=== PATIENT | male | born 1965 | race American Indian/Alaskan Native ===

== ENCOUNTER 2017-07-14 13:43 | Emergency (ER) | payer SELFPAY ==
[2017-07-14] MEDS ORDERED: NACL 0.9% 1000 ML 1,000 ML IV ONE (13:59)
[2017-07-14 14:28] LABS: Basophils % (Auto) 0.5 % (0.0-1.8); Hematocrit 40.1 % (35.5-45.6); Hemoglobin 13.6 gm/dl (11.8-15.2); Mean Corpuscular HGB Conc 34 % (32-34); Mean Corpuscular Hemoglobin 31 pg (28-32); Mean Corpuscular Volume 92 fl (84-94); Platelet Count 178 K/mm3 (140-440); Red Blood Count 4.38 M/mm3 (3.65-5.03); Red Cell Distribution Width 14.7 % (13.2-15.2); White Blood Count 8.8 K/mm3 (4.5-11.0)
[2017-07-14 14:39] LABS: INR 0.88 (0.87-1.13)
[2017-07-14 14:40] LABS: Partial Thromboplastin Time 34.5 Sec. (24.2-36.6)
[2017-07-14 14:50] LABS: Alanine Aminotransferase 11 units/L (7-56); Albumin 3.8 g/dL (3.9-5); Albumin/Globulin Ratio 1.3 %; Alkaline Phosphatase 74 units/L (35-129); Anion Gap 17 mmol/L; BUN/Creatinine Ratio 7.77; Blood Urea Nitrogen 7 mg/dL (9-20); Calcium 8.7 mg/dL (8.4-10.2); Carbon Dioxide 23 mmol/L (22-30); Chloride 104.1 mmol/L (98-107); Glucose 102 mg/dL (75-100); Lipase 43 units/L (13-60); Sodium 140 mmol/L (137-145); Total Protein 6.7 g/dL (6.3-8.2)
--- NOTE | 2017-07-14 16:31 | Emergency Department Report ---
ED GI Bleed HPI - General Chief complaint: GI Bleed Stated complaint: BLOODY STOOL Time Seen by Provider: 07/14/17 16:14 Source: patient Mode of arrival: Ambulatory Limitations: No Limitations - History of Present Illness Initial comments: Patient is a 52-year-old male who presents with bloody stools have been going on for the last year. Patient states that he came in today because he's noticed increased frequency in his bloody stools. He states that A, serum and however he defecates. He states that there is some red streaks when he wipes. Patient is also complaining of tongue pain. Tongue pain is said to 10 nothing makes it better or worse as a sore type pain. The pain does not radiate. It is intermittent and is not associated with any symptoms. He has not talked to his doctor about this rectal bleeding. Patient denies having any nausea or vomiting. Patient denies having any chest pain any fever. - Related Data Home Medications Medication Instructions Recorded Confirmed Last Taken Aspirin [Aspirin BABY CHEW TAB] 81 mg PO QDAY 07/12/15 04/13/16 04/13/16 Lisinopril [Zestril TAB] 5 mg PO QDAY 07/12/15 04/13/16 04/13/16 Nitroglycerin [Nitrostat] 0.4 mg SL Q5M PRN 07/12/15 04/13/16 04/13/16 Carvedilol [Coreg] 3.125 mg PO BID 04/13/16 04/13/16 04/13/16 Folic Acid [Folvite] 1 mg PO QDAY 04/13/16 04/13/16 04/13/16 Simvastatin [Zocor TAB] 2 mg PO QDAY 04/13/16 04/13/16 04/13/16 Previous Rx's Medication Instructions Recorded Last Taken Type Nystas/Diphen/Xyl Visc/Mylanta 30 ml PO Q4H PRN #380 ml 07/14/17 Unknown Rx [Magic Mouthwash] Allergies Allergy/AdvReac Type Severity Reaction Status Date / Time No Known Allergies Allergy Verified 08/16/13 05:08 ED Review of Systems ROS: Stated complaint: BLOODY STOOL Other details as noted in HPI Constitutional: denies: chills, fever Eyes: denies: eye pain, eye discharge, vision change ENT: other (tongue pain ). denies: ear pain, throat pain Respiratory: denies: cough, shortness of breath, wheezing Cardiovascular: denies: chest pain, palpitations Endocrine: no symptoms reported Gastrointestinal: hematochezia. denies: abdominal pain, nausea, diarrhea Genitourinary: denies: urgency, dysuria Musculoskeletal: denies: back pain, joint swelling, arthralgia Skin: denies: rash, lesions Neurological: denies: headache, weakness, paresthesias Psychiatric: denies: anxiety, depression Hematological/Lymphatic: denies: easy bleeding, easy bruising ED Past Medical Hx - Past Medical History Hx Hypertension: Yes Hx Heart Attack/AMI: Yes (5) - Surgical History Additional Surgical History: cath - Social History Smoking Status: Never Smoker - Medications Home Medications: Home Medications Medication Instructions Recorded Confirmed Last Taken Type Aspirin [Aspirin BABY CHEW TAB] 81 mg PO QDAY 07/12/15 04/13/16 04/13/16 History Lisinopril [Zestril TAB] 5 mg PO QDAY 07/12/15 04/13/16 04/13/16 History Nitroglycerin [Nitrostat] 0.4 mg SL Q5M PRN 07/12/15 04/13/16 04/13/16 History Carvedilol [Coreg] 3.125 mg PO BID 04/13/16 04/13/16 04/13/16 History Folic Acid [Folvite] 1 mg PO QDAY 04/13/16 04/13/16 04/13/16 History Simvastatin [Zocor TAB] 2 mg PO QDAY 04/13/16 04/13/16 04/13/16 History Nystas/Diphen/Xyl Visc/Mylanta 30 ml PO Q4H PRN #380 ml 07/14/17 Unknown Rx [Magic Mouthwash] ED Physical Exam - General Limitations: No Limitations General appearance: alert, in no apparent distress - Head Head exam: Present: atraumatic, normocephalic - Eye Eye exam: Present: normal appearance - ENT ENT exam: Present: mucous membranes moist, other (tongue has no rash or sores) - Neck Neck exam: Present: normal inspection - Respiratory Respiratory exam: Present: normal lung sounds bilaterally. Absent: respiratory distress - Cardiovascular Cardiovascular Exam: Present: regular rate, normal rhythm. Absent: systolic murmur, diastolic murmur, rubs, gallop - GI/Abdominal GI/Abdominal exam: Present: soft, normal bowel sounds - Rectal Rectal exam: Present: deferred, heme (-) stool, other (external hemorroids ) - Extremities Exam Extremities exam: Present: normal inspection - Back Exam Back exam: Present: normal inspection - Neurological Exam Neurological exam: Present: alert, oriented X3 - Psychiatric Psychiatric exam: Present: normal affect, normal mood - Skin Skin exam: Present: warm, dry, intact, normal color. Absent: rash ED Course Vital Signs 07/14/17 07/14/17 07/14/17 13:53 16:03 16:04 Temperature 98.1 F Pulse Rate 79 Respiratory 16 Rate Blood Pressure 129/80 137/99 O2 Sat by Pulse 100 100 100 Oximetry - Reevaluation(s) Reevaluation #1: 07/14/17 16:36 Patient has no active rectal bleeding. He is in no pain. Discussed with patient that I will send patient home with referral for GI doctor. He agrees with plan. ED Medical Decision Making - Lab Data Result diagrams: 07/14/17 14:11 07/14/17 14:11 Lab Results 07/14/17 07/14/17 07/14/17 Range/Units 14:11 14:11 14:11 WBC 8.8 (4.5-11.0) K/mm3 RBC 4.38 (3.65-5.03) M/mm3 Hgb 13.6 (11.8-15.2) gm/dl Hct 40.1 (35.5-45.6) % MCV 92 (84-94) fl MCH 31 (28-32) pg MCHC 34 (32-34) % RDW 14.7 (13.2-15.2) % Plt Count 178 (140-440) K/mm3 Lymph % (Auto) 22.5 (13.4-35.0) % [place] % (Auto) 3.7 (0.0-7.3) % Eos % (Auto) 1.0 (0.0-4.3) % Baso % (Auto) 0.5 (0.0-1.8) % Lymph # 2.0 (1.2-5.4) K/mm3 [place] # 0.3 (0.0-0.8) K/mm3 Eos # 0.1 (0.0-0.4) K/mm3 Baso # 0.0 (0.0-0.1) K/mm3 Seg Neutrophils % 72.3 H (40.0-70.0) % Seg Neutrophils # 6.3 (1.8-7.7) K/mm3 PT 11.8 L (12.2-14.9) Sec. INR 0.88 (0.87-1.13) APTT 34.5 (24.2-36.6) Sec. Sodium 140 (137-145) mmol/L Potassium 4.0 (3.6-5.0) mmol/L Chloride 104.1 (98-107) mmol/L Carbon Dioxide 23 (22-30) mmol/L Anion Gap 17 mmol/L BUN 7 L (9-20) mg/dL Creatinine 0.9 (0.8-1.5) mg/dL Estimated GFR > 60 ml/min BUN/Creatinine Ratio 7.77 % Glucose 102 H (75-100) mg/dL Calcium 8.7 (8.4-10.2) mg/dL Total Bilirubin 0.20 (0.1-1.2) mg/dL AST 18 (5-40) units/L ALT 11 (7-56) units/L Alkaline Phosphatase 74 (35-129) units/L Total Protein 6.7 (6.3-8.2) g/dL Albumin 3.8 L (3.9-5) g/dL Albumin/Globulin Ratio 1.3 % Lipase 43 (13-60) units/L Blood Type Antibody Screen 07/14/17 Range/Units 14:20 WBC (4.5-11.0) K/mm3 RBC (3.65-5.03) M/mm3 Hgb (11.8-15.2) gm/dl Hct (35.5-45.6) % MCV (84-94) fl MCH (28-32) pg MCHC (32-34) % RDW (13.2-15.2) % Plt Count (140-440) K/mm3 Lymph % (Auto) (13.4-35.0) % [place] % (Auto) (0.0-7.3) % Eos % (Auto) (0.0-4.3) % Baso % (Auto) (0.0-1.8) % Lymph # (1.2-5.4) K/mm3 [place] # (0.0-0.8) K/mm3 Eos # (0.0-0.4) K/mm3 Baso # (0.0-0.1) K/mm3 Seg Neutrophils % (40.0-70.0) % Seg Neutrophils # (1.8-7.7) K/mm3 PT (12.2-14.9) Sec. INR (0.87-1.13) APTT (24.2-36.6) Sec. Sodium (137-145) mmol/L Potassium (3.6-5.0) mmol/L Chloride (98-107) mmol/L Carbon Dioxide (22-30) mmol/L Anion Gap mmol/L BUN (9-20) mg/dL Creatinine (0.8-1.5) mg/dL Estimated GFR ml/min BUN/Creatinine Ratio % Glucose (75-100) mg/dL Calcium (8.4-10.2) mg/dL Total Bilirubin (0.1-1.2) mg/dL AST (5-40) units/L ALT (7-56) units/L Alkaline Phosphatase (35-129) units/L Total Protein (6.3-8.2) g/dL Albumin (3.9-5) g/dL Albumin/Globulin Ratio % Lipase (13-60) units/L Blood Type O POSITIVE Antibody Screen Negative - EKG Data -: EKG Interpreted by Mi - EKG Data 07/14/17 16:31 EKG shows normal sinus rhythm no ST segment elevations or T-wave inversions. No prior EKG. - Medical Decision Making Chief medical diagnosis: External hemorrhoid Differential diagnosis: Internal hemorrhoid, AVM malformation, peptic ulcer, anemia I will get CBC, CMP, type and screen, EKG, troponin Patient is Hemoccult negative on rectal exam has external hemorrhoid. Patient' s laboratory findings are unrevealing. Due to patient having symptoms have been going on for one year. Also patient home with follow-up for GI doctor. Also prescribed patient Magic mouthwash for his tongue pain. Patient has no sores on his tongue and no oral thrush. Additional PERRL discharge instructions were given. Critical care attestation.: If time is entered above; I have spent that time in minutes in the direct care of this critically ill patient, excluding procedure time. ED Disposition Clinical Impression: Tongue pain, Rectal bleeding Disposition: DC- TO HOME OR SELFCARE Is pt being admited?: No Does the pt Need Aspirin: No Condition: Stable Instructions: Rectal Bleeding (ED) Prescriptions: Nystas/Diphen/Xyl Visc/Mylanta [Magic Mouthwash] 30 ml PO Q4H PRN #380 ml PRN Reason: Mouth Pain Referrals: SKIP ADDISON MD [Staff Physician] - 3-5 Days Forms: Accompanied Note
[2017-07-14 17:06] VITALS: BP 137/99
== END 2017-07-14 16:44 | disposition home or self-care (01) ==
LOC: ED 13:43
DX: K14.6 Glossodynia (principal); K62.5 Hemorrhage of anus and rectum; I10 Essential (primary) hypertension; I21.3 ST elevation (STEMI) myocardial infarction of unspecified site
CPT/HCPCS: 36415; 80053; 83690; 85025; 85610; 85730; 86850; 86900; 86901; 93005; 93010; 99284

== ENCOUNTER 2017-10-06 18:03 | Emergency (ER) | payer OTHER ==
[2017-10-06 18:54] VITALS: BP 142/93
--- NOTE | 2017-10-06 20:27 | Emergency Department Report ---
ED ENT HPI - General Chief complaint: Earache Stated complaint: SCRATCH IN MY EAR Time Seen by Provider: 10/06/17 20:08 Source: patient Mode of arrival: Ambulatory Limitations: No Limitations - History of Present Illness Initial comments: This is a 52-year-old male nontoxic, well nourished in appearance, no acute signs of distress presents to the ED with c/o of left earache x1 day. Patient stated he felt like a bug tried to get inside and he scraped his left ear. Patient denies any hearing abnormalities, mastoid tenderness, discharge from the ear canal, fever, chills, nausea, vomiting, chest pain, shortness of breath , headache, stiff neck. Patient denies any allergies. Past medical history includes hypertension. MD complaint: ear pain -: This evening Location: L ear Severity: mild Severity scale (0 -10): 8 Quality: aching Consistency: constant Improves with: none Worsens with: none Associated Symptoms: denies: fever, cough, gum swelling, toothache, pain with swallowing, sore throat, tinnitus, hearing loss, discharge from ear, rhinorrhea - Related Data Home Medications Medication Instructions Recorded Confirmed Last Taken Aspirin [Aspirin BABY CHEW TAB] 81 mg PO QDAY 07/12/15 04/13/16 04/13/16 Lisinopril [Zestril TAB] 5 mg PO QDAY 07/12/15 04/13/16 04/13/16 Nitroglycerin [Nitrostat] 0.4 mg SL Q5M PRN 07/12/15 04/13/16 04/13/16 Carvedilol [Coreg] 3.125 mg PO BID 04/13/16 04/13/16 04/13/16 Folic Acid [Folvite] 1 mg PO QDAY 04/13/16 04/13/16 04/13/16 Simvastatin [Zocor TAB] 2 mg PO QDAY 04/13/16 04/13/16 04/13/16 Previous Rx's Medication Instructions Recorded Last Taken Type Nystas/Diphen/Xyl Visc/Mylanta 30 ml PO Q4H PRN #380 ml 07/14/17 Unknown Rx [Magic Mouthwash] Amoxicillin 500 mg PO BID #20 capsule 10/06/17 Unknown Rx Allergies Allergy/AdvReac Type Severity Reaction Status Date / Time No Known Allergies Allergy Verified 08/16/13 05:08 ED Dental HPI - General Chief complaint: Earache Stated complaint: SCRATCH IN MY EAR Time Seen by Provider: 10/06/17 20:08 Source: patient Mode of arrival: Ambulatory Limitations: No Limitations - Related Data Home Medications Medication Instructions Recorded Confirmed Last Taken Aspirin [Aspirin BABY CHEW TAB] 81 mg PO QDAY 07/12/15 04/13/16 04/13/16 Lisinopril [Zestril TAB] 5 mg PO QDAY 07/12/15 04/13/16 04/13/16 Nitroglycerin [Nitrostat] 0.4 mg SL Q5M PRN 07/12/15 04/13/16 04/13/16 Carvedilol [Coreg] 3.125 mg PO BID 04/13/16 04/13/16 04/13/16 Folic Acid [Folvite] 1 mg PO QDAY 04/13/16 04/13/16 04/13/16 Simvastatin [Zocor TAB] 2 mg PO QDAY 04/13/16 04/13/16 04/13/16 Previous Rx's Medication Instructions Recorded Last Taken Type Nystas/Diphen/Xyl Visc/Mylanta 30 ml PO Q4H PRN #380 ml 07/14/17 Unknown Rx [Magic Mouthwash] Amoxicillin 500 mg PO BID #20 capsule 10/06/17 Unknown Rx Allergies Allergy/AdvReac Type Severity Reaction Status Date / Time No Known Allergies Allergy Verified 08/16/13 05:08 ED Review of Systems ROS: Stated complaint: SCRATCH IN MY EAR Other details as noted in HPI Constitutional: denies: chills, fever Eyes: denies: eye pain, eye discharge, vision change ENT: ear pain. denies: throat pain Respiratory: denies: cough, shortness of breath, wheezing Cardiovascular: denies: chest pain, palpitations Endocrine: no symptoms reported Gastrointestinal: denies: abdominal pain, nausea, diarrhea Genitourinary: denies: urgency, dysuria Musculoskeletal: denies: back pain, joint swelling, arthralgia Skin: denies: rash, lesions Neurological: denies: headache, weakness, paresthesias Psychiatric: denies: anxiety, depression Hematological/Lymphatic: denies: easy bleeding, easy bruising ED Past Medical Hx - Past Medical History Hx Hypertension: Yes Hx Heart Attack/AMI: Yes (5) - Surgical History Additional Surgical History: cath - Social History Smoking Status: Current Every Day Smoker Substance Use Type: None - Medications Home Medications: Home Medications Medication Instructions Recorded Confirmed Last Taken Type Aspirin [Aspirin BABY CHEW TAB] 81 mg PO QDAY 07/12/15 04/13/16 04/13/16 History Lisinopril [Zestril TAB] 5 mg PO QDAY 07/12/15 04/13/16 04/13/16 History Nitroglycerin [Nitrostat] 0.4 mg SL Q5M PRN 07/12/15 04/13/16 04/13/16 History Carvedilol [Coreg] 3.125 mg PO BID 04/13/16 04/13/16 04/13/16 History Folic Acid [Folvite] 1 mg PO QDAY 04/13/16 04/13/16 04/13/16 History Simvastatin [Zocor TAB] 2 mg PO QDAY 04/13/16 04/13/16 04/13/16 History Nystas/Diphen/Xyl Visc/Mylanta 30 ml PO Q4H PRN #380 ml 07/14/17 Unknown Rx [Magic Mouthwash] Amoxicillin 500 mg PO BID #20 capsule 10/06/17 Unknown Rx ED Physical Exam - General Limitations: No Limitations General appearance: alert, in no apparent distress - Head Head exam: Present: atraumatic, normocephalic - Eye Eye exam: Present: normal appearance, PERRL, EOMI. Absent: scleral icterus, conjunctival injection, nystagmus, periorbital swelling, periorbital tenderness Pupils: Present: normal accommodation - ENT ENT exam: Present: normal exam, normal orophraynx, mucous membranes moist, normal external ear exam - Expanded ENT Exam Expanded Ear exam: Present: normal external inspection TM/Canal exam: Erythema: Left TM, Bulging: Left TM Mouth exam: Present: normal external inspection, tongue normal. Absent: drooling, trismus, muffled voice, tongue elevation, laceration Teeth exam: Present: normal inspection Throat exam: Positive: normal inspection - Neck Neck exam: Present: normal inspection, full ROM. Absent: tenderness, lymphadenopathy, thyromegaly - Respiratory Respiratory exam: Present: normal lung sounds bilaterally. Absent: respiratory distress, wheezes, rales, rhonchi, stridor, chest wall tenderness, accessory muscle use, decreased breath sounds, prolonged expiratory - Cardiovascular Cardiovascular Exam: Present: regular rate, normal rhythm, normal heart sounds. Absent: bradycardia, tachycardia, irregular rhythm, systolic murmur, diastolic murmur, rubs, gallop - GI/Abdominal GI/Abdominal exam: Present: soft, normal bowel sounds. Absent: distended, tenderness, guarding, rebound, rigid, diminished bowel sounds - Rectal Rectal exam: Present: deferred - Extremities Exam Extremities exam: Present: normal inspection, full ROM, normal capillary refill. Absent: tenderness, pedal edema, joint swelling, calf tenderness - Back Exam Back exam: Present: normal inspection, full ROM. Absent: tenderness, CVA tenderness (R), CVA tenderness (L), muscle spasm, paraspinal tenderness, vertebral tenderness, rash noted - Neurological Exam Neurological exam: Present: alert, oriented X3, CN II-XII intact, normal gait, reflexes normal - Psychiatric Psychiatric exam: Present: normal affect, normal mood - Skin Skin exam: Present: warm, dry, intact, normal color. Absent: rash ED Course Vital Signs 10/06/17 18:49 Temperature 98.0 F Pulse Rate 90 Respiratory 16 Rate Blood Pressure 142/93 O2 Sat by Pulse 98 Oximetry - Reevaluation(s) Reevaluation #1: 10/06/17 20:28 Patient is speaking in full sentences with no signs of distress noted. ED Medical Decision Making - Medical Decision Making this is a 52-year-old male that presents with left otitis media. Patient is febrile and was examined by me. There is no foreign body present upon examination. Negative mastoid tenderness or tragus tenderness. Patient will receive amoxicillin at discharge. Patient was instructed Follow-up with a primary care doctor in 3-5 days or if symptoms worsen and continue return to emergency room as soon as possible. At time time of discharge, the patient does not seem toxic or ill in appearance. No acute signs of distress noted. Patient agrees to discharge treatment plan of care. No further questions noted by the patient. Critical care attestation.: If time is entered above; I have spent that time in minutes in the direct care of this critically ill patient, excluding procedure time. ED Disposition Clinical Impression: Otitis media Qualifiers: Otitis media type: unspecified Laterality: left Qualified Code(s): H66.92 - Otitis media, unspecified, left ear Disposition: DC-01 TO HOME OR SELFCARE Is pt being admited?: No Does the pt Need Aspirin: No Condition: Stable Instructions: Otitis Media (ED), Amoxicillin (By mouth) Additional Instructions: Follow-up with a primary care doctor in 3-5 days or if symptoms worsen and continue return to emergency room as soon as possible. Prescriptions: Amoxicillin 500 mg PO BID #20 capsule Referrals: PRIMARY CAREMD [Primary Care Provider] - 3-5 Days DENTON MONTEZ MD [Staff Physician] - 3-5 Days [facility] [Outside] - 3-5 Days [facility] [Outside] - 3-5 Days Forms: Work/School Release Form(ED)
== END 2017-10-06 20:35 | disposition home or self-care (01) ==
LOC: ED 18:03
DX: H66.92 Otitis media, unspecified, left ear (principal); I10 Essential (primary) hypertension; I21.9 Acute myocardial infarction, unspecified; F17.200 Nicotine dependence, unspecified, uncomplicated; Z79.82 Long term (current) use of aspirin
CPT/HCPCS: 99282

== ENCOUNTER 2018-04-16 13:18 | Emergency (ER) | payer SELFPAY ==
[2018-04-16 13:53] VITALS: BP 116/71
--- NOTE | 2018-04-16 15:14 | Emergency Department Report ---
ED Lower Extremity HPI - General Chief Complaint: Extremity Problem,Nontraumatic Stated Complaint: TOE FUNGUS Time Seen by Provider: 04/16/18 14:56 Source: patient Mode of arrival: Ambulatory Limitations: No Limitations - History of Present Illness Initial Comments: This is a 53-year-old -[place] male who presents with fungal rash between 4th and 5th toes. Complaint: foot injury (right) -: month(s) (3 months) Injury: Toes: Right (fungal rash between #4 and #5) Type of Injury: unknown Place: home Severity: moderate Severity scale (0 -10): 3 Improves With: other ([id number] fungal cream) Worsens With: weight bearing Context: walking Associated Symptoms: able to partially bear weight, ambulatory - Related Data Home Medications Medication Instructions Recorded Confirmed Last Taken Aspirin [Aspirin BABY CHEW TAB] 81 mg PO QDAY 07/12/15 04/13/16 04/13/16 Lisinopril [Zestril TAB] 5 mg PO QDAY 07/12/15 04/13/16 04/13/16 Nitroglycerin [Nitrostat] 0.4 mg SL Q5M PRN 07/12/15 04/13/16 04/13/16 Carvedilol [Coreg] 3.125 mg PO BID 04/13/16 04/13/16 04/13/16 Folic Acid [Folvite] 1 mg PO QDAY 04/13/16 04/13/16 04/13/16 Simvastatin [Zocor TAB] 2 mg PO QDAY 04/13/16 04/13/16 04/13/16 Previous Rx's Medication Instructions Recorded Last Taken Type Nystas/Diphen/Xyl Visc/Mylanta 30 ml PO Q4H PRN #380 ml 07/14/17 Unknown Rx [Magic Mouthwash] Amoxicillin 500 mg PO BID #20 capsule 10/06/17 Unknown Rx Ciprofloxacin HCl [Cipro] 500 mg PO Q8H #21 tablet 04/16/18 Unknown Rx Allergies Allergy/AdvReac Type Severity Reaction Status Date / Time No Known Allergies Allergy Verified 08/16/13 05:08 ED Review of Systems ROS: Stated complaint: TOE FUNGUS Other details as noted in HPI Constitutional: denies: chills, fever Respiratory: denies: cough, shortness of breath, wheezing Cardiovascular: as per HPI Gastrointestinal: denies: abdominal pain, nausea, vomiting, diarrhea Skin: rash (between 4th and 5th toes). denies: lesions Neurological: denies: headache, weakness, numbness, paresthesias Psychiatric: denies: anxiety, depression ED Past Medical Hx - Past Medical History Previous Medical History?: Yes Hx Hypertension: Yes Hx Heart Attack/AMI: Yes (5) - Surgical History Additional Surgical History: cath - Social History Smoking Status: Current Every Day Smoker Substance Use Type: None - Medications Home Medications: Home Medications Medication Instructions Recorded Confirmed Last Taken Type Aspirin [Aspirin BABY CHEW TAB] 81 mg PO QDAY 07/12/15 04/13/16 04/13/16 History Lisinopril [Zestril TAB] 5 mg PO QDAY 07/12/15 04/13/16 04/13/16 History Nitroglycerin [Nitrostat] 0.4 mg SL Q5M PRN 07/12/15 04/13/16 04/13/16 History Carvedilol [Coreg] 3.125 mg PO BID 04/13/16 04/13/16 04/13/16 History Folic Acid [Folvite] 1 mg PO QDAY 04/13/16 04/13/16 04/13/16 History Simvastatin [Zocor TAB] 2 mg PO QDAY 04/13/16 04/13/16 04/13/16 History Nystas/Diphen/Xyl Visc/Mylanta 30 ml PO Q4H PRN #380 ml 07/14/17 Unknown Rx [Magic Mouthwash] Amoxicillin 500 mg PO BID #20 capsule 10/06/17 Unknown Rx Ciprofloxacin HCl [Cipro] 500 mg PO Q8H #21 tablet 04/16/18 Unknown Rx ED Physical Exam - General Limitations: No Limitations General appearance: alert, in no apparent distress - Respiratory Respiratory exam: Present: normal lung sounds bilaterally. Absent: respiratory distress - Cardiovascular Cardiovascular Exam: Present: regular rate, normal rhythm, normal heart sounds. Absent: systolic murmur, diastolic murmur, rubs, gallop - GI/Abdominal GI/Abdominal exam: Present: soft, normal bowel sounds. Absent: organomegaly, mass - Expanded Lower Extremity Exam Right Hip exam: Present: normal inspection, full ROM Upper Leg exam: Present: normal inspection, full ROM Knee exam: Present: normal inspection, full ROM Lower Leg exam: Present: normal inspection, full ROM Ankle exam: Present: normal inspection, full ROM Foot/Toe exam: Present: full ROM, tenderness (1 cm erythematous rash between fourth and fifth toe web, tenderness, and purulent discharge) Neuro vascular tendon exam: Present: no vascular compromise Gait: Positive: observed and limited by pain ED Course Vital Signs 04/16/18 13:52 Temperature 98.3 F Pulse Rate 74 Respiratory 16 Rate Blood Pressure 116/71 O2 Sat by Pulse 97 Oximetry ED Lower Extremity MDM - Medical Decision Making This is a 53 y.o. male that presents with a painful rash between 4th and 5th toe web on right foot for 3 months. Patient is stable and examined by me. No acute signs of distress noted. Physical assessment of 1 cm rash in toe web, tenderness, and purulent discharge. Discussed plan to start cipro and ibuprofen with patient. Educated patient and spouse on follow up plan and wound reassessed in 3-5 days. Patient agrees to ED plan of care. Discharged home and follow up with PCP in 2-3 days. Critical care attestation.: If time is entered above; I have spent that time in minutes in the direct care of this critically ill patient, excluding procedure time. ED Disposition Clinical Impression: Infection of toe web Tinea pedis Qualifiers: Laterality: right Qualified Code(s): B35.3 - Tinea pedis Disposition: DC-01 TO HOME OR SELFCARE Is pt being admited?: No Does the pt Need Aspirin: No Condition: Stable Instructions: Tinea Pedis (ED) Additional Instructions: Wash feet twice a day and keep area clean and dry. Wear clean soak daily. Complete full course of antibiotics as prescribed for 7 days. Follow up with primary care provider in 2 to 3 days. Prescriptions: Ciprofloxacin HCl [Cipro] 500 mg PO Q8H #21 tablet Referrals: [facility] [Outside] - 3-5 Days [facility] [Outside] - 3-5 Days [facility] [Outside] - 3-5 Days Time of Disposition: 15:25 Print Language: CZECH
== END 2018-04-16 15:40 | disposition home or self-care (01) ==
LOC: ED 13:18
DX: B35.3 Tinea pedis (principal); I10 Essential (primary) hypertension; I25.2 Old myocardial infarction; F17.200 Nicotine dependence, unspecified, uncomplicated; Z79.82 Long term (current) use of aspirin
CPT/HCPCS: 99282

== ENCOUNTER 2018-08-03 05:45 | Emergency (ER) | payer SELFPAY ==
[2018-08-03 06:31] LABS: Basophils # (Auto) 0.1 K/mm3 (0.0-0.1); Basophils % (Auto) 0.6 % (0.0-1.8); Eosinophils % (Auto) 0.3 % (0.0-4.3); Hemoglobin 15.3 gm/dl (11.8-15.2); Lymphocytes % (Auto) 21.9 % (13.4-35.0); Mean Corpuscular HGB Conc 34 % (32-34); Mean Corpuscular Hemoglobin 32 pg (28-32); Mean Corpuscular Volume 94 fl (84-94); Monocytes # (Auto) 0.4 K/mm3 (0.0-0.8); Monocytes % (Auto) 4.6 % (0.0-7.3); Platelet Count 194 K/mm3 (140-440); Red Blood Count 4.79 M/mm3 (3.65-5.03); Red Cell Distribution Width 14.3 % (13.2-15.2)
[2018-08-03 06:41] LABS: INR 0.89 (0.87-1.13)
[2018-08-03 06:42] LABS: Partial Thromboplastin Time 28.9 Sec. (24.2-36.6)
[2018-08-03 07:13] LABS: BUN/Creatinine Ratio 11; Blood Urea Nitrogen 11 mg/dL (9-20); Calcium 9.4 mg/dL (8.4-10.2); Hemolysis Index 2
[2018-08-03] MEDS ORDERED: SUBLIMAZE IV ONE (07:28)
[2018-08-03] MEDS ORDERED: ZOFRAN IV ONE (07:28)
--- NOTE | 2018-08-03 08:07 | Emergency Department Report ---
HPI - General Chief Complaint: Chest Pain Time Seen by Provider: 08/03/18 06:31 - HPI HPI: The patient is a 53-year-old male who presents for evaluation of chest pain. The patient reports bilateral chest pain that began one to 2 hours prior to arrival, has been constant since onset, moderate severity currently, sharp in quality. He states that it began while he was walking home from a store around 4am. The patient denies fever, neck pain, parasthesias, dyspnea, cough, hemoptysis, palpitations, dizziness, syncope, unilateral leg swelling, calf muscle pain. Patient also denies cocaine or other stimulant use, history of DVT or PE, recent immobilization, or history of cancer. ED Past Medical Hx - Past Medical History Hx Hypertension: Yes Hx Heart Attack/AMI: Yes (5) - Surgical History Additional Surgical History: cath - Social History Smoking Status: Current Every Day Smoker Substance Use Type: Alcohol - Medications Home Medications: Home Medications Medication Instructions Recorded Confirmed Last Taken Type Aspirin [Aspirin BABY CHEW TAB] 81 mg PO QDAY 07/12/15 04/13/16 04/13/16 History Lisinopril [Zestril TAB] 5 mg PO QDAY 07/12/15 04/13/16 04/13/16 History Nitroglycerin [Nitrostat] 0.4 mg SL Q5M PRN 07/12/15 04/13/16 04/13/16 History Carvedilol [Coreg] 3.125 mg PO BID 04/13/16 04/13/16 04/13/16 History Folic Acid [Folvite] 1 mg PO QDAY 04/13/16 04/13/16 04/13/16 History Simvastatin [Zocor TAB] 2 mg PO QDAY 04/13/16 04/13/16 04/13/16 History Nystas/Diphen/Xyl Visc/Mylanta 30 ml PO Q4H PRN #380 ml 07/14/17 Unknown Rx [Magic Mouthwash] Amoxicillin 500 mg PO BID #20 capsule 10/06/17 Unknown Rx Ciprofloxacin HCl [Cipro] 500 mg PO Q8H #21 tablet 04/16/18 Unknown Rx ED Review of Systems ROS: Stated complaint: CHEST PAIN Other details as noted in HPI Constitutional: denies: fever ENT: denies: throat or neck pain Respiratory: denies: cough, shortness of breath Cardiovascular: reports: chest pain Endocrine: denies unexplained weight loss or gain Gastrointestinal: denies: abdominal pain, nausea Genitourinary: denies: dysuria Musculoskeletal: denies: leg swelling Skin: denies: rash Neurological: denies: headache Hematological/Lymphatic: denies: easy bleeding or easy bruising Psych: denies sadness or hopelessness Physical Exam - Physical Exam Vital Signs: Vital Signs 08/03/18 08/03/18 08/03/18 05:55 06:00 06:01 Temperature 98.1 F Pulse Rate 86 83 Respiratory 17 Rate Blood Pressure 134/86 142/78 O2 Sat by Pulse 96 96 94 Oximetry 08/03/18 08/03/18 08/03/18 06:09 06:15 06:31 Temperature Pulse Rate 81 82 Respiratory 12 17 18 Rate Blood Pressure 142/78 128/65 O2 Sat by Pulse 96 96 Oximetry 08/03/18 07:01 Temperature Pulse Rate 76 Respiratory 18 Rate Blood Pressure 128/69 O2 Sat by Pulse 95 Oximetry Physical Exam: General: well-nourished, well-developed, no acute distress Head: Normocephalic, atraumatic Eyes: normal sclera ENT: Mucous membranes are pink and moist Neck: trachea midline, neck supple, No neck stiffness, no cervical adenopathy Respiratory: Breath sounds equal bilaterally, no wheezing, rales, or rhonchi Cardio: S1 and S2 present, no murmurs, rubs, gallops, capillary refill is brisk Abdomen: Normoactive bowel sounds, soft abdomen, no rigidity, no guarding or rebound tenderness Musc: No pitting edema Skin: No rash Neuro: no facial drooping, normal speech Psych: Normal affect ED Course Vital Signs 08/03/18 08/03/18 08/03/18 05:55 06:00 06:01 Temperature 98.1 F Pulse Rate 86 83 Respiratory 17 Rate Blood Pressure 134/86 142/78 O2 Sat by Pulse 96 96 94 Oximetry 08/03/18 08/03/18 08/03/18 06:09 06:15 06:31 Temperature Pulse Rate 81 82 Respiratory 12 17 18 Rate Blood Pressure 142/78 128/65 O2 Sat by Pulse 96 96 Oximetry 08/03/18 07:01 Temperature Pulse Rate 76 Respiratory 18 Rate Blood Pressure 128/69 O2 Sat by Pulse 95 Oximetry ED Medical Decision Making - Lab Data Result diagrams: 08/03/18 06:12 08/03/18 06:12 - Medical Decision Making The patient was seen and examined by myself. The patient is placed on a cardiac rehabilitation program director and continuous pulse ox. On initial evaluation, the patient was found to be in no distress. EKG was negative for findings suggestive of acute cardiac infarct. Labs and imaging are obtained. The patient is given a refill for his pain. Chest x-ray is negative for pneumothorax, focal consolidation, pulmonary vascular congestion, pleural effusion, or other obvious acute cardiopulmonary disease process. Lab results were non-concerning including levels of 3 sets of troponin, WBC, hemoglobin, hematocrit, electrolytes, renal function. The patient was reevaluated and reported that their symptoms were markedly improved. As the patient has a GREY risk score less than 2, and a well 's score less than 2, the patient is at low risk of ACS or pulmonary emboli etiology of their symptoms. The patient is stable for discharge with outpatient follow-up. The patient is given follow-up and return instructions. The patient expressed understanding and agreed with the plan. The patient is discharged in stable condition. Critical care attestation.: If time is entered above; I have spent that time in minutes in the direct care of this critically ill patient, excluding procedure time. ED Disposition Clinical Impression: Acute chest pain, Dehydration Disposition: DC-01 TO HOME OR SELFCARE Is pt being admited?: No Does the pt Need Aspirin: No Condition: Stable Instructions: Chest Pain (ED) Referrals: PRIMARY CARE, [Primary Care Provider] - 3-5 Days Time of Disposition: 12:44
--- NOTE | 2018-08-03 08:46 | XRay Report ---
FINAL REPORT EXAM: XR CHEST 1V AP HISTORY: chest pain TECHNIQUE: AP portable view(s) of the chest obtained. PRIORS: None. FINDINGS: No mediastinal shift. Cardiac silhouette is not enlarged. No pneumothorax, effusion, or focal pulmonary opacity identified. No acute skeletal findings. IMPRESSION: No acute pulmonary finding identified.
[2018-08-03] MEDS ORDERED: ULTRAM PO ONE (09:38)
[2018-08-03] MEDS ORDERED: ULTRAM ONE (09:43)
[2018-08-03 12:35] VITALS: BP 130/85
== END 2018-08-03 13:06 | disposition home or self-care (01) ==
LOC: ED 05:45
DX: R07.89 Other chest pain (principal); E86.0 Dehydration; I10 Essential (primary) hypertension; I25.2 Old myocardial infarction; F17.200 Nicotine dependence, unspecified, uncomplicated
CPT/HCPCS: 36415; 71045; 80048; 83880; 84484; 85025; 85610; 85730; 93005; 93010; 96374; 96375; 99285; G0480; J2405; J3010; 80320

== ENCOUNTER 2019-06-29 13:37 | Emergency (ER) | payer SELFPAY ==
[2019-06-29 13:56] VITALS: BP 125/84
[2019-06-29] MEDS ORDERED: NITROSTAT SL ONE (14:15)
--- NOTE | 2019-06-29 14:15 | Emergency Department Report ---
ED Chest Pain HPI - General Chief Complaint: Chest Pain Stated Complaint: CHESTPAIN Time Seen by Provider: 06/29/19 14:13 Source: patient, EMS Mode of arrival: Stretcher Limitations: No Limitations - History of Present Illness Initial Comments: presents to the ED with chest pain chest pain, onset 1 hour prior to evaluation while at rest, Location: mid chest Radiation: none, Severity now (0-10): 2, Severity at worst (0-10): 8 Duration: 5 minutes characterized as: sharp. The pain is relieved with aspirin, Patient denies exertional pain, patient denies pleuritic pain. Patient denies associated symptoms, such as nausea/vomiting, no diaphoresis, no shortness of breath. MD Complaint: chest pain - Related Data Home Medications Medication Instructions Recorded Confirmed Last Taken Aspirin [Aspirin BABY CHEW TAB] 81 mg PO QDAY 07/12/15 04/13/16 04/13/16 Lisinopril [Zestril TAB] 5 mg PO QDAY 07/12/15 04/13/16 04/13/16 Nitroglycerin [Nitrostat] 0.4 mg SL Q5M PRN 07/12/15 04/13/16 04/13/16 Carvedilol [Coreg] 3.125 mg PO BID 04/13/16 04/13/16 04/13/16 Folic Acid [Folvite] 1 mg PO QDAY 04/13/16 04/13/16 04/13/16 Simvastatin [Zocor TAB] 2 mg PO QDAY 04/13/16 04/13/16 04/13/16 Previous Rx's Medication Instructions Recorded Last Taken Type Nystas/Diphen/Xyl Visc/Mylanta 30 ml PO Q4H PRN #380 ml 07/14/17 Unknown Rx [Magic Mouthwash] Amoxicillin 500 mg PO BID #20 capsule 10/06/17 Unknown Rx Ciprofloxacin HCl [Cipro] 500 mg PO Q8H #21 tablet 04/16/18 Unknown Rx Allergies Allergy/AdvReac Type Severity Reaction Status Date / Time No Known Allergies Allergy Verified 08/16/13 05:08 Heart Score - HEART Score History: Slightly suspicious EKG: Non-specific Age: 45-65 Risk factors: > 3 risk factors or hx of atherosclerotic disease Troponin: < normal limit HEART Score: 4 ED Review of Systems ROS: Stated complaint: CHESTPAIN Other details as noted in HPI ED Past Medical Hx - Past Medical History Previous Medical History?: Yes Hx Hypertension: Yes Hx Heart Attack/AMI: Yes (5) - Surgical History Past Surgical History?: Yes Additional Surgical History: cath - Social History Smoking Status: Current Every Day Smoker Substance Use Type: Alcohol - Medications Home Medications: Home Medications Medication Instructions Recorded Confirmed Last Taken Type Aspirin [Aspirin BABY CHEW TAB] 81 mg PO QDAY 07/12/15 04/13/16 04/13/16 History Lisinopril [Zestril TAB] 5 mg PO QDAY 07/12/15 04/13/16 04/13/16 History Nitroglycerin [Nitrostat] 0.4 mg SL Q5M PRN 07/12/15 04/13/16 04/13/16 History Carvedilol [Coreg] 3.125 mg PO BID 04/13/16 04/13/16 04/13/16 History Folic Acid [Folvite] 1 mg PO QDAY 04/13/16 04/13/16 04/13/16 History Simvastatin [Zocor TAB] 2 mg PO QDAY 04/13/16 04/13/16 04/13/16 History Nystas/Diphen/Xyl Visc/Mylanta 30 ml PO Q4H PRN #380 ml 07/14/17 Unknown Rx [Magic Mouthwash] Amoxicillin 500 mg PO BID #20 capsule 10/06/17 Unknown Rx Ciprofloxacin HCl [Cipro] 500 mg PO Q8H #21 tablet 04/16/18 Unknown Rx ED Physical Exam - General Limitations: No Limitations ED Course Vital Signs 06/29/19 13:49 Temperature 97.4 F L Pulse Rate 77 Respiratory 16 Rate Blood Pressure 125/84 O2 Sat by Pulse 100 Oximetry GREY score - Grey Score Age > 65: (0) No Aspirin use within the Past 7 Days: (1) Yes 3 or more CAD Risk Factors: (1) Yes 2 or more Angina events in past 24 hrs: (1) Yes Known CAD with more than 50% Stenosis: (0) No Elevated Cardiac Markers: (0) No ST Deviation Greater than 0.5mm: (0) No GREY Score: 3 ED Medical Decision Making - EKG Data -: EKG Interpreted by Wi EKG shows normal: sinus rhythm Rate: normal - EKG Data Interpretation: other 06/29/19 14:45 EKG showed second-degree AV block Mariposa magallanes Critical care attestation.: If time is entered above; I have spent that time in minutes in the direct care of this critically ill patient, excluding procedure time. ED Disposition Condition: Stable
[2019-06-29] MEDS ORDERED: MORPHINE IV ONE (14:16)
[2019-06-29] MEDS ORDERED: ZOFRAN IV ONE (14:16)
--- NOTE | 2019-06-29 14:50 | XRay Report ---
CHEST 1 VIEW INDICATION: Chest Pain. COMPARISON: 08/03/2018. FINDINGS: Support devices: None. Heart: Normal. Lungs/Pleura: No acute pulmonary or pleural findings. IMPRESSION: 1. No acute findings. Signer Name: Quang Martin MD Signed: 06/29/2019 2:45 PM Workstation Name: [id number]
[2019-06-29 14:57] LABS: Basophils # (Auto) 0.1 K/mm3 (0.0-0.1); Basophils % (Auto) 0.7 % (0.0-1.8); Eosinophils # (Auto) 0.1 K/mm3 (0.0-0.4); Eosinophils % (Auto) 0.9 % (0.0-4.3); Hematocrit 44.8 % (35.5-45.6); Hemoglobin 15.2 gm/dl (11.8-15.2); Lymphocytes # (Auto) 1.5 K/mm3 (1.2-5.4); Lymphocytes % (Auto) 20.5 % (13.4-35.0); Mean Corpuscular HGB Conc 34 % (32-34); Mean Corpuscular Volume 94 fl (84-94); Monocytes # (Auto) 0.4 K/mm3 (0.0-0.8); Monocytes % (Auto) 5.2 % (0.0-7.3); Platelet Count 207 K/mm3 (140-440); Red Blood Count 4.78 M/mm3 (3.65-5.03); Red Cell Distribution Width 14.1 % (13.2-15.2)
[2019-06-29] MEDS ORDERED: ASPIRIN PO SCH (15:00)
[2019-06-29 15:12] LABS: INR 0.95 (0.87-1.13)
[2019-06-29 15:13] LABS: Partial Thromboplastin Time 35.6 Sec. (24.2-36.6)
[2019-06-29 15:21] LABS: Alanine Aminotransferase 15 units/L (7-56); Albumin 3.8 g/dL (3.9-5); BUN/Creatinine Ratio 12; Blood Urea Nitrogen 13 mg/dL (9-20); Calcium 9.1 mg/dL (8.4-10.2); Hemolysis Index 15
== END 2019-06-29 15:08 | disposition left against medical advice (07) ==
LOC: ED 13:37
DX: R07.89 Other chest pain (principal); I10 Essential (primary) hypertension; I25.2 Old myocardial infarction; F17.200 Nicotine dependence, unspecified, uncomplicated
CPT/HCPCS: 36415; 71045; 80053; 83690; 84484; 85025; 85610; 85730; 93005; 93010; J2405; 96374

== ENCOUNTER 2019-07-10 18:19 | Inpatient (IN) | payer SELFPAY ==
--- NOTE | 2019-07-10 19:25 | XRay Report ---
CHEST PA AND LATERAL VIEWS INDICATION: Chest Pain. COMPARISON: 06/23/2019 FINDINGS: Support devices: None Heart: Normal and unchanged Lungs/Pleura: No acute pulmonary or pleural findings. IMPRESSION: 1. No acute disease and no interval change. Signer Name: Curry Jewell MD Signed: 07/10/2019 7:21 PM Workstation Name: [id number]
[2019-07-10 19:30] LABS: Basophils % (Auto) 0.6 % (0.0-1.8); Eosinophils # (Auto) 0.1 K/mm3 (0.0-0.4); Eosinophils % (Auto) 0.9 % (0.0-4.3); Hematocrit 42.8 % (35.5-45.6); Hemoglobin 14.6 gm/dl (11.8-15.2); Lymphocytes # (Auto) 2.3 K/mm3 (1.2-5.4); Lymphocytes % (Auto) 35.6 % (13.4-35.0); Mean Corpuscular HGB Conc 34 % (32-34); Mean Corpuscular Volume 93 fl (84-94); Monocytes # (Auto) 0.4 K/mm3 (0.0-0.8); Monocytes % (Auto) 6.5 % (0.0-7.3); Platelet Count 209 K/mm3 (140-440); Red Blood Count 4.59 M/mm3 (3.65-5.03); Red Cell Distribution Width 14.4 % (13.2-15.2)
[2019-07-10 19:57] LABS: Alanine Aminotransferase 15 units/L (7-56); BUN/Creatinine Ratio 13; Blood Urea Nitrogen 16 mg/dL (9-20); Calcium 9.2 mg/dL (8.4-10.2); Hemolysis Index 11
[2019-07-10] MEDS ORDERED: ASPIRIN PO ONE (21:27)
--- NOTE | 2019-07-10 21:29 | Emergency Department Report ---
ED Chest Pain HPI - General Chief Complaint: Chest Pain Stated Complaint: CHEST PAIN/SOB Time Seen by Provider: 07/10/19 21:05 Source: patient Mode of arrival: Ambulatory Limitations: No Limitations - History of Present Illness Initial Comments: Patient is a 54-year-old male that presents emergency room with complaints of chest pain shortness of breath that started 2 hours prior to arrival. Patient states he's got multiple medical problems. Patient states he smokes. Patient states that 5 MIs. Patient states he is taking all his medications. Patient states the pain is 10 out of 10. Patient states his left chest. Patient states is nonradiating. Patient also complains shortness of breath. Patient states symptoms better with rest and worse with exertion. MD Complaint: chest pain -: Sudden Onset: during rest Pain Location: substernal, left chest Pain Radiation: none Severity: severe Severity scale (0 -10): 10 Quality: sharp Consistency: constant Improves With: rest Worsens With: exertion re: dyspnea. denies: nausea, vomting, diaphoresis, sense of impending doom Other Symptoms: denies: cough, fever, syncope, rash, acid taste in mouth, leg swelling, palpitations, burping Treatments Prior to Arrival: none Aspirin use within the Past 7 Days: (1) Yes - Related Data On Oral Contraceptives: No Home Medications Medication Instructions Recorded Confirmed Last Taken Aspirin [Aspirin BABY CHEW TAB] 81 mg PO QDAY 07/12/15 07/10/19 04/13/16 Lisinopril [Zestril TAB] 5 mg PO QDAY 07/12/15 07/10/19 04/13/16 Nitroglycerin [Nitrostat] 0.4 mg SL Q5M PRN 07/12/15 07/10/19 04/13/16 Carvedilol [Coreg] 3.125 mg PO BID 04/13/16 07/10/19 04/13/16 Folic Acid [Folvite] 1 mg PO QDAY 04/13/16 07/10/19 04/13/16 Simvastatin [Zocor TAB] 2 mg PO QDAY 04/13/16 07/10/19 04/13/16 Allergies Allergy/AdvReac Type Severity Reaction Status Date / Time No Known Allergies Allergy Verified 07/10/19 18:22 Heart Score - HEART Score History: Highly suspicious EKG: Non-specific Age: 45-65 Risk factors: > 3 risk factors or hx of atherosclerotic disease Troponin: < normal limit HEART Score: 6 ED Review of Systems ROS: Stated complaint: CHEST PAIN/SOB Other details as noted in HPI Constitutional: denies: chills, fever Eyes: denies: eye pain, eye discharge, vision change ENT: denies: ear pain, throat pain Respiratory: shortness of breath. denies: cough, wheezing Cardiovascular: chest pain. denies: palpitations Endocrine: no symptoms reported Gastrointestinal: denies: abdominal pain, nausea, diarrhea Genitourinary: denies: urgency, dysuria Musculoskeletal: denies: back pain, joint swelling, arthralgia Skin: denies: rash, lesions Neurological: denies: headache, weakness, paresthesias Psychiatric: denies: anxiety, depression Hematological/Lymphatic: denies: easy bleeding, easy bruising ED Past Medical Hx - Past Medical History Previous Medical History?: Yes Hx Hypertension: Yes Hx Heart Attack/AMI: Yes (5) - Surgical History Past Surgical History?: Yes Additional Surgical History: cath - Social History Smoking Status: Current Every Day Smoker Substance Use Type: Alcohol - Medications Home Medications: Home Medications Medication Instructions Recorded Confirmed Last Taken Type Aspirin [Aspirin BABY CHEW TAB] 81 mg PO QDAY 07/12/15 07/10/19 04/13/16 History Lisinopril [Zestril TAB] 5 mg PO QDAY 07/12/15 07/10/19 04/13/16 History Nitroglycerin [Nitrostat] 0.4 mg SL Q5M PRN 07/12/15 07/10/19 04/13/16 History Carvedilol [Coreg] 3.125 mg PO BID 04/13/16 07/10/19 04/13/16 History Folic Acid [Folvite] 1 mg PO QDAY 04/13/16 07/10/19 04/13/16 History Simvastatin [Zocor TAB] 2 mg PO QDAY 04/13/16 07/10/19 04/13/16 History ED Physical Exam - General Limitations: No Limitations General appearance: alert, in no apparent distress - Head Head exam: Present: atraumatic, normocephalic - Eye Eye exam: Present: normal appearance - ENT ENT exam: Present: mucous membranes moist - Neck Neck exam: Present: normal inspection - Respiratory Respiratory exam: Present: normal lung sounds bilaterally. Absent: respiratory distress - Cardiovascular Cardiovascular Exam: Present: regular rate, normal rhythm. Absent: systolic murmur, diastolic murmur, rubs, gallop - GI/Abdominal GI/Abdominal exam: Present: soft, normal bowel sounds - Rectal Rectal exam: Present: deferred - Extremities Exam Extremities exam: Present: normal inspection - Back Exam Back exam: Present: normal inspection - Neurological Exam Neurological exam: Present: alert, oriented X3 - Psychiatric Psychiatric exam: Present: normal affect, normal mood - Skin Skin exam: Present: warm, dry, intact, normal color. Absent: rash ED Course Vital Signs 07/10/19 07/10/19 07/10/19 18:23 21:13 21:39 Temperature 98.7 F 98.6 F Pulse Rate 99 H 100 H Respiratory 16 20 18 Rate Blood Pressure 136/93 126/98 [Right] O2 Sat by Pulse 100 100 100 Oximetry 07/10/19 07/10/19 21:40 23:59 Temperature 98 F Pulse Rate 88 86 Respiratory 18 16 Rate Blood Pressure 122/78 124/88 [Right] O2 Sat by Pulse 100 100 Oximetry - Reevaluation(s) Reevaluation #1: I discussed all results with patient. I discussed plan of care with patient. Patient will be admitted to the hospitalist service. Patient agrees with plan of care. I discussed smoking cessation with patient. Patient voiced understanding of counseling. Approximately 15 minutes spent for counseling. 07/10/19 21:27 - Consultations Consultation #1: Hospitalist consult for admission. Hospitalist to admit patient. 07/10/19 21:28 GREY score - Grey Score Age > 65: (0) No Aspirin use within the Past 7 Days: (1) Yes 3 or more CAD Risk Factors: (1) Yes 2 or more Angina events in past 24 hrs: (1) Yes Known CAD with more than 50% Stenosis: (0) No Elevated Cardiac Markers: (0) No ST Deviation Greater than 0.5mm: (0) No GREY Score: 3 ED Medical Decision Making - Lab Data Result diagrams: 07/10/19 19:10 07/10/19 19:10 - EKG Data -: EKG Interpreted by Me EKG shows normal: sinus rhythm, axis, intervals, QRS complexes, ST-T waves Rate: normal - Radiology Data Radiology results: report reviewed, image reviewed interpreted by me: Normal limits chest x-ray - Medical Decision Making She is a 54-year-old male that presents emergency room with chest pain shortness of breath. Patient's symptoms while 2 hours prior to arrival. Patient has a significant past medical history for FL 5 and hyperlipidemia and hypertension. Patient also smokes. Patient's heart score is elevated. Patient admitted to the hospitalist service for further evaluation treatment and rule out ACS. Patient's EKG is unchanged. Patient's chest x-ray is negative. Patient's labs unremarkable. Smoking cessation counseling done in the ER. - Differential Diagnosis CAD, ACS. Chest pain. Shortness of breath. Critical Care Time: Yes Critical care attestation.: If time is entered above; I have spent that time in minutes in the direct care of this critically ill patient, excluding procedure time. Critical Care Time: 35 minutes ED Disposition Clinical Impression: Smoking history, Encounter for smoking cessation counseling, SOB (shortness of breath), History of [place] (myocardial infarction) Chest pain Qualifiers: Chest pain type: unspecified Qualified Code(s): R07.9 - Chest pain, unspecified HTN (hypertension) Qualifiers: Hypertension type: essential hypertension Qualified Code(s): I10 - Essential (primary) hypertension CAD (coronary artery disease) Qualifiers: Coronary Disease-Associated Artery/Lesion type: [place] artery [place] vs. transplanted heart: [place] heart Associated angina: angina presence unspecified Qualified Code(s): I25.10 - Atherosclerotic heart disease of [place] coronary artery without angina pectoris Disposition: OP ADMIT IP TO THIS HOSP Is pt being admited?: Yes Does the pt Need Aspirin: No Condition: Critical Time of Disposition: 21:31
[2019-07-10] MEDS ORDERED: NITROSTAT SL PRN (23:12)
[2019-07-10] MEDS ORDERED: ZOFRAN IV PRN (23:13)
[2019-07-10] MEDS ORDERED: TYLENOL PO PRN (23:13)
[2019-07-10] MEDS ORDERED: HEPARIN ONE (23:50)
[2019-07-10] MEDS ORDERED: MORPHINE ONE (23:51)
[2019-07-10] MEDS: HEPARIN SUB-Q SCH (23:57)
[2019-07-10] MEDS: MORPHINE IV PRN (23:58)
[2019-07-11 01:51] LABS: Creatine Kinase MB 4.3 ng/mL (0.0-4.0)
--- NOTE | 2019-07-11 03:36 | History and Physical Report ---
CHIEF COMPLAINT: Chest pain. HISTORY OF PRESENT ILLNESS: The patient is a 54-year-old male who said he has been having sharp chest pain involving the precordial area that started 2 hours prior to presentation. The patient said the pain does not radiate and is associated with shortness of breath, diaphoresis, but no nausea, no vomiting. Also, the patient denied symptoms of dizziness and rated the pain as 10/10, the patient said the pain is worse with exertion. PAST MEDICAL HISTORY: Pertinent for hypertension, coronary artery disease, status post myocardial infarction. PAST SURGICAL HISTORY: Pertinent for cardiac catheterization. FAMILY HISTORY: Noncontributory. SOCIAL HISTORY: The patient smokes cigarettes, drinks alcohol and denies use of illicit drugs. MEDICATIONS: The patient is on aspirin 81 mg daily, lisinopril 5 mg by mouth daily, nitroglycerin sublingual 0.4 mg every 5 minutes as needed for chest pain and carvedilol 3.125 mg by mouth twice daily. Also, the patient is on folic acid 1 mg by mouth daily and simvastatin, dose not clear and could be 20 mg by mouth daily. ALLERGIES: There are no known drug allergies. REVIEW OF SYSTEMS: CONSTITUTIONAL: There is no fever, no chills, diaphoresis is present. HEENT: There is no headache or sore throat. CARDIOVASCULAR SYSTEM: Chest pain is present. No orthopnea. RESPIRATORY SYSTEM: Shortness of breath is present. No cough. GASTROINTESTINAL SYSTEM: There is no nausea, no vomiting, no abdominal pain, diarrhea or constipation. NEUROLOGICAL SYSTEM: There is no numbness, no dizziness, no altered mental status. MUSCULOSKELETAL SYSTEM: There is no joint pain or swelling. DERMATOLOGICAL SYSTEM: There is no skin rash or itching. GENITOURINARY SYSTEM: There is no dysuria, hematuria or flank pain. Rest of system review is normal. PHYSICAL EXAMINATION: GENERAL: At the time of exam, the patient was found to be alert, oriented x 3 and not in acute distress. VITAL SIGNS: Shows temperature of 98.7 degrees Fahrenheit, pulse of 99, respirations 16, blood pressure 136/93, O2 sat of 100% on room air. HEENT: Showed pupils to be equal, round, reactive to light and accommodating. Extraocular muscles are intact. NECK: Supple with no JVD or carotid bruit. CARDIOVASCULAR SYSTEM: Showed normal first and second heart sounds with no gallops or murmurs. RESPIRATORY SYSTEM: Showed good air entry on both sides of the lungs with no abnormal breath sounds. GASTROINTESTINAL SYSTEM: Showed abdomen to be full, soft, nontender with no organomegaly or rigidity. NEUROLOGIC: Showed no focal deficit. MUSCULOSKELETAL SYSTEM: Showed no joint swelling or tenderness. DERMATOLOGICAL: Showed no skin rash. GENITOURINARY SYSTEM: Showing no costovertebral angle tenderness. PERTINENT LABORATORY AND IMAGING STUDIES: The patient had chest x-ray done that came back unremarkable and the patient's CBC showed normal white count with normal hemoglobin and normal hematocrit with CBC differential showing elevated lymphocyte count of 35.6% and the patient's chemistry was unremarkable. Cardiac enzymes showed elevated total CPK of 316 with elevated CK-MB of 4.3 and normal CK percentage index. The patient's troponin levels came back normal. DIAGNOSIS: Chest pain. PLAN OF CARE: 1. The patient will be admitted to telemetry. 2. The patient will have serial cardiac enzymes involving troponin, total CK and CK-MB every 6 hours x 2 more levels. 3. The patient will be n.p.o. and will have Lexiscan stress test this morning. 4. The patient will be on aspirin 325 mg by mouth daily and Tylenol 650 mg by mouth every 4 hours for fever and headache. 5. The patient will be on nitro paste half inch to anterior chest wall q.i.d. and Nitrostat 0.4 mg every 5 minutes as needed for chest pain. 6. The patient will be on IV morphine 2 mg every 3 hours as needed for pain and IV Zofran 4 mg every 8 hours for nausea and vomiting. 7. The patient will be on oxygen by nasal cannula 2 liters per minute. JOB# [id number] OCN/NTS
[2019-07-11] MEDS: NITRO-BID 2% TP SCH ×2 (05:53→09:50)
[2019-07-11 08:01] LABS: Creatine Kinase MB 4.4 ng/mL (0.0-4.0)
[2019-07-11] MEDS ORDERED: LEXISCAN IV ONE ×2 (08:10→08:14)
[2019-07-11] MEDS ORDERED: NITROSTAT SL PRN (08:58)
[2019-07-11] MEDS: MORPHINE IV PRN (09:40)
[2019-07-11] MEDS: HEPARIN SUB-Q SCH (09:40)
[2019-07-11] MEDS ORDERED: BABY ASPIRIN PO SCH (10:00)
[2019-07-11] MEDS ORDERED: ZESTRIL PO SCH ×2 (10:00)
[2019-07-11] MEDS ORDERED: ASPIRIN PO SCH (10:00)
[2019-07-11] MEDS ORDERED: COREG PO SCH (10:00)
[2019-07-11] MEDS ORDERED: FOLVITE PO SCH (10:00)
[2019-07-11 10:38] VITALS: BP 114/90
--- NOTE | 2019-07-11 11:03 | Discharge Summary ---
Providers - Providers Date of Admission: 07/10/19 23:07 Attending physician: TAYLER CARRASCO MD Primary care physician: TECHNICAL MAINTENANCE TECHNICIAN Hospitalization Condition: Stable Hospital course: * Patient seen and examined, reports no further chest pain, Extensive counselling on tobacco cessation done for 15 mins, he verbalized. Disposition: DC-01 TO HOME OR SELFCARE Time spent for discharge: 35 MINS Core Measure Documentation - Palliative Care Palliative Care/ Comfort Measures: Not Applicable - Core Measures Any of the following diagnoses?: none Exam - Constitutional Vitals: Temp Pulse Resp BP Pulse Ox 97.6 F 79 16 114/90 99 07/11/19 03:52 07/11/19 07:29 07/11/19 03:52 07/11/19 08:42 07/11/19 10:00 General appearance: Present: no acute distress, well-nourished - EENT Eyes: Present: PERRL, EOM intact ENT: hearing intact - Neck Neck: Present: supple, normal ROM - Respiratory Respiratory effort: normal Respiratory: bilateral: CTA - Cardiovascular Rhythm: regular Heart Sounds: Present: S1 & S2. Absent: systolic murmur, diastolic murmur - Extremities Extremities: no ischemia, pulses intact, pulses symmetrical, No edema, normal temperature, normal color, Full ROM Peripheral Pulses: within normal limits - Abdominal General gastrointestinal: Present: soft, non-tender, non-distended - Integumentary Integumentary: Present: warm, dry - Musculoskeletal Musculoskeletal: strength equal bilaterally - Psychiatric Psychiatric: appropriate mood/affect, intact judgment & insight - Neurologic Neurologic: CNII-XII intact, moves all extremities - Allied Health Allied health notes reviewed: nursing Plan Activity: advance as tolerated, fall precautions Diet: low fat Special Instructions: smoking cessation Follow up with: PRIMARY CARE, [Primary Care Provider] - 7 Days ERICKSON SAUCEDO MD [Staff Physician] - 7 Days
== END 2019-07-11 13:46 | disposition home or self-care (01) | DRG 313 ==
LOC: ED 18:19 → 4A 23:07
PROVIDERS: ADMIT Internal Medicine; ATTEND Internal Medicine
DX: R07.9 Chest pain, unspecified (principal); I10 Essential (primary) hypertension; I25.10 Atherosclerotic heart disease of native coronary artery without angina pectoris; F17.210 Nicotine dependence, cigarettes, uncomplicated; Z71.6 Tobacco abuse counseling; Z79.82 Long term (current) use of aspirin; Z79.899 Other long term (current) drug therapy; I25.2 Old myocardial infarction; Z72.89 Other problems related to lifestyle
CPT/HCPCS: 36415; 71046; 78452; 80053; 82550; 82553; 84484; 85025; 93005; 93010; 93017; 99406; G0378; A9502; J1644; J2270; J2785

== ENCOUNTER 2019-12-10 12:56 | Outpatient (CLI) | payer OTHER | END 2019-12-10 12:57 | disposition home or self-care (01) | LOC: LABHHL 12:56 | PROVIDERS: ATTEND Family Medicine | DX: R07.9 Chest pain, unspecified (principal) | CPT/HCPCS: 36415; 84484 ==

== ENCOUNTER 2020-09-28 12:16 | Emergency (ER) | payer SELFPAY ==
[2020-09-28 12:23] VITALS: BP 147/93
--- NOTE | 2020-09-28 13:01 | Emergency Department Report ---
Chief Complaint: Urogenital-Male Stated Complaint: SORE IN MOUTH/SORE ON PRIVATE AREA - HPI History of Present Illness: 55-year-old -[place] male presents to the emergency room complaining of sores in his private area and in his mouth for a week. Patient denies any fever chills no nausea no vomiting. Patient reports no history of any HIV. He is is followed by Jose Maria. - Exam Vital Signs: Vital Signs 09/28/20 12:20 Temperature 98.1 F Pulse Rate 85 Respiratory 18 Rate Blood Pressure 147/93 O2 Sat by Pulse 96 Oximetry Physical Exam: Alert and oriented x3 no acute distress nontoxic in appearance No accessory muscles use Mouth flat white plaque on left side of tongue three quarter size lesion on testicle no swelling nonerythematous nontender. Ambulatory without difficulties MSE screening note: Focused history and physical exam performed. Due to findings the following was ordered: 55-year-old -[place] male presents to the emergency room complaining of sores in his private area and in his mouth for a week. Patient denies any fever chills no nausea no vomiting. Patient reports no history of any HIV. He is is followed by Jose Maria. Discussed with patient he can follow-up at the health department for further evaluation. ED Disposition for MSE Disposition: MED SCREENING EXAM-LEFT Is pt being admited?: No Does the pt Need Aspirin: No Condition: Stable Referrals: [facility] [Outside] - 3-[address] [facility] [Outside] - 3-5 Days
== END 2020-09-28 15:43 | disposition left against medical advice (07) ==
LOC: ED 12:16
DX: K13.79 Other lesions of oral mucosa (principal); Z53.21 Procedure and treatment not carried out due to patient leaving prior to being seen by health care provider

== ENCOUNTER 2021-03-20 16:06 | Emergency (ER) | payer SELFPAY ==
--- NOTE | 2021-03-20 17:02 | Emergency Department Report ---
ED Extremity Problem HPI - General Chief complaint: Extremity Problem,Nontraumatic Stated complaint: FEET PAIN Time Seen by Provider: 03/20/21 17:01 Source: patient Mode of arrival: Ambulatory Limitations: No Limitations - History of Present Illness Initial comments: 56 year old male with a past medical history of hypertension CAD, tobacco use and hyperlipidemia presents to ED with c/o bilateral plantar feet pain. Patient states his pain started about 1 week ago. He states pain is worse with weight bearing/standing. He denies any particular injury but he states he does do lots of standing at work. He states it feels like right foot feel swollen. He denies any apparent erythema or bruising, numbness or tingling. He denies any associated chest pain or shortness of breath. He denies any prior injury or surgery to his feet. MD Complaint: joint paint, other (bilateral foot pain) -: Gradual, week(s) (1) Location: left, right History of Same: No - Related Data Home Medications Medication Instructions Recorded Confirmed Last Taken Aspirin [Aspirin BABY CHEW TAB] 81 mg PO QDAY 07/12/15 07/10/19 04/13/16 Nitroglycerin [Nitrostat] 0.4 mg SL Q5M PRN 07/12/15 07/10/19 04/13/16 lisinopriL [Zestril TAB] 5 mg PO QDAY 07/12/15 07/10/19 04/13/16 Folic Acid [Folvite] 1 mg PO QDAY 04/13/16 07/10/19 04/13/16 Simvastatin [Zocor TAB] 2 mg PO QDAY 04/13/16 07/10/19 04/13/16 carvediloL [Coreg] 3.125 mg PO BID 04/13/16 07/10/19 04/13/16 Previous Rx's Medication Instructions Recorded Last Taken Type Ketorolac [Toradol] 10 mg PO Q6H PRN #20 tablet 03/20/21 Unknown Rx Allergies Allergy/AdvReac Type Severity Reaction Status Date / Time No Known Allergies Allergy Verified 07/10/19 18:22 ED Review of Systems ROS: Stated complaint: FEET PAIN Other details as noted in HPI Comment: All other systems reviewed and negative Constitutional: denies: chills, fever Eyes: denies: eye pain, eye discharge, vision change ENT: denies: ear pain, throat pain Respiratory: denies: cough, shortness of breath, SOB with exertion, SOB at rest, wheezing Cardiovascular: denies: chest pain, palpitations, dyspnea on exertion, orthopnea, syncope, paroxysmal nocturnal dyspnea Gastrointestinal: denies: abdominal pain, nausea, vomiting, diarrhea, constipation, hematemesis, melena, hematochezia Genitourinary: denies: urgency, dysuria, frequency, hematuria, discharge, testicular pain, testicular mass Musculoskeletal: arthralgia. denies: back pain, joint swelling, myalgia Skin: denies: rash, lesions, change in color, change in hair/nails, pruritus Neurological: denies: headache, weakness, numbness, paresthesias, confusion, abnormal gait, vertigo Psychiatric: denies: anxiety, depression, auditory hallucinations, visual hallucinations, homicidal thoughts, suicidal thoughts Hematological/Lymphatic: denies: easy bleeding, easy bruising, swollen glands ED Past Medical Hx - Past Medical History Previous Medical History?: Yes Hx Hypertension: Yes Hx Heart Attack/AMI: Yes (5) Hx Congestive Heart Failure: No Hx Diabetes: No Hx Asthma: No Hx COPD: No Additional medical history: high cholestrol - Surgical History Past Surgical History?: Yes Hx Coronary Stent: Yes Additional Surgical History: cath - Social History Smoking Status: Never Smoker - Medications Home Medications: Home Medications Medication Instructions Recorded Confirmed Last Taken Type Aspirin [Aspirin BABY CHEW TAB] 81 mg PO QDAY 07/12/15 07/10/19 04/13/16 History Nitroglycerin [Nitrostat] 0.4 mg SL Q5M PRN 07/12/15 07/10/19 04/13/16 History lisinopriL [Zestril TAB] 5 mg PO QDAY 07/12/15 07/10/19 04/13/16 History Folic Acid [Folvite] 1 mg PO QDAY 04/13/16 07/10/19 04/13/16 History Simvastatin [Zocor TAB] 2 mg PO QDAY 04/13/16 07/10/19 04/13/16 History carvediloL [Coreg] 3.125 mg PO BID 04/13/16 07/10/19 04/13/16 History Ketorolac [Toradol] 10 mg PO Q6H PRN #20 tablet 03/20/21 Unknown Rx ED Physical Exam - General Limitations: No Limitations General appearance: alert, in no apparent distress - Head Head exam: Present: atraumatic, normocephalic, normal inspection - Eye Eye exam: Present: normal appearance, PERRL, EOMI Pupils: Present: normal accommodation - ENT ENT exam: Present: normal exam, mucous membranes moist - Neck Neck exam: Present: normal inspection, full ROM - Respiratory Respiratory exam: Present: normal lung sounds bilaterally. Absent: respiratory distress - Cardiovascular Cardiovascular Exam: Present: regular rate, normal rhythm, normal heart sounds - GI/Abdominal GI/Abdominal exam: Present: soft. Absent: distended, tenderness, guarding - Extremities Exam Extremities exam: Present: other (No apparent tenderness to palpation to the dorsal or plantar aspect of the right foot. Skin: Normal temperature and color; Medley pedis pulse and posterior tibialis pulse normal; full range of motion of the right foot without any difficulty; incision to the foot intact.) - Expanded Lower Extremity Exam Left Foot/Toe exam: Present: normal inspection, full ROM, tenderness (He has tenderness to the left heel.). Absent: swelling, abrasion, laceration, ecchymosis, deformity, crepidus, dislocation, erythema, amputation, puncture wound, foreign body, calcaneal tenderness, tenderness at base of 5th metatarsal, nail avulsion, subungual hematoma Neuro vascular tendon exam: Present: no vascular compromise. Absent: pulse deficit, abnormal cap refill, motor deficit, sensory deficit Gait: Positive: observed and normal - Neurological Exam Neurological exam: Present: alert, oriented X3, CN II-XII intact, normal gait - Psychiatric Psychiatric exam: Present: normal affect, normal mood - Skin Skin exam: Present: intact ED Course Vital Signs 03/20/21 16:58 Temperature 98.5 F Pulse Rate 82 Respiratory 20 Rate Blood Pressure 146/94 O2 Sat by Pulse 98 Oximetry ED Medical Decision Making - Differential Diagnosis plantar fasciitis, tendonitis, heel spur, sprain/strain Critical care attestation.: If time is entered above; I have spent that time in minutes in the direct care of this critically ill patient, excluding procedure time. ED Disposition Clinical Impression: Bilateral foot pain Disposition: TO HOME OR SELFCARE Is pt being admited?: No Does the pt Need Aspirin: No Condition: Stable Instructions: Foot Pain Additional Instructions: It is important that you take the medications as prescribed. Is also important that you follow-up with the meat specialist listed on your discharge instructions for further evaluation and treatment of your plantar foot pain. Elevate your foot as often as possible. Return to the ER if your symptoms changes or worsens in any way. Prescriptions: Ketorolac [Toradol] 10 mg PO Q6H PRN #20 tablet PRN Reason: Pain Referrals: BUBBA KAUR DPM [Staff Physician] - 3-5 Days (Manager Of Change) Forms: Work/School Release Form(ED) Time of Disposition: 17:10
[2021-03-20 17:11] VITALS: BP 146/94
== END 2021-03-20 17:34 | disposition home or self-care (01) ==
LOC: ED 16:06
DX: M79.671 Pain in right foot (principal); M79.672 Pain in left foot; I10 Essential (primary) hypertension; E78.00 Pure hypercholesterolemia, unspecified; Z98.890 Other specified postprocedural states; Z95.1 Presence of aortocoronary bypass graft; Z79.82 Long term (current) use of aspirin; Z79.899 Other long term (current) drug therapy
CPT/HCPCS: 99281

== ENCOUNTER 2021-06-11 06:55 | Emergency (ER) | payer SELFPAY ==
[2021-06-11] MEDS ORDERED: ASPIRIN 325 MG TAB PO ONE (07:33)
[2021-06-11 07:38] VITALS: BP 150/100
[2021-06-11 07:58] LABS: Basophils # (Auto) 0.1 K/mm3 (0.0-0.1); Basophils % (Auto) 0.7 % (0.0-1.8); Eosinophils # (Auto) 0.1 K/mm3 (0.0-0.4); Eosinophils % (Auto) 1.6 % (0.0-4.3); Hematocrit 44.2 % (35.5-45.6); Hemoglobin 15.3 gm/dl (11.8-15.2); Lymphocytes # (Auto) 2.6 K/mm3 (1.2-5.4); Lymphocytes % (Auto) 34.1 % (13.4-35.0); Mean Corpuscular HGB Conc 35 % (32-34); Mean Corpuscular Volume 94 fl (84-94); Monocytes # (Auto) 0.7 K/mm3 (0.0-0.8); Monocytes % (Auto) 8.4 % (0.0-7.3); Platelet Count 218 K/mm3 (140-440); Red Blood Count 4.68 M/mm3 (3.65-5.03); Red Cell Distribution Width 14.2 % (13.2-15.2)
[2021-06-11 08:20] LABS: Alanine Aminotransferase 23 units/L (7-56); Albumin 4.7 g/dL (3.9-5); BUN/Creatinine Ratio 18; Blood Urea Nitrogen 23 mg/dL (9-20); Calcium 9.7 mg/dL (8.4-10.2); Hemolysis Index 7
--- NOTE | 2021-06-11 08:25 | XRay Report ---
CHEST 2 VIEWS INDICATION: chestpain. COMPARISON: None. FINDINGS: Support devices: None. Heart: Within normal limits. Lungs/Pleura: No acute air space or interstitial disease. No significant pleural effusion. IMPRESSION: No acute findings. Signer Name: Jed Crowe MD Signed: 06/11/2021 8:21 AM Workstation Name: [id number]
--- NOTE | 2021-06-11 11:14 | Emergency Department Report ---
ED Chest Pain HPI - General Chief Complaint: Chest Pain Stated Complaint: CHEST PAIN Time Seen by Provider: 06/11/21 11:06 Source: patient Mode of arrival: Ambulatory Limitations: No Limitations - History of Present Illness Initial Comments: Chief complaint: "I am having chest pain." HPI: This is a 56-year-old male with history of hypertension, hyperlipidemia cocaine dependence and [place] x4 who presents with chest tightness which began this morning. He admitted to taking cocaine this morning after stressful situation. He has 5 out of 10 chest tightness without radiation. He also has mild shortness of breath. He denies vomiting, fever, cough, abdominal pain, back pain. He states that he has had 4 heart attacks diagnosed [facility]. He does not have cardiac stents. On July 11, 2019: Patient had normal myocardial perfusion scan. Based on study cardiovascular risk 1%. Patient underwent left heart catheterization at this hospital 07/15/2015 coronary arteries were angiographically normal. MD Complaint: chest pain -: Sudden, This morning Onset: during rest Pain Location: left chest Pain Radiation: none Severity: mild Severity scale (0 -10): 5 Quality: tightness Consistency: constant Improves With: nothing Worsens With: nothing Context: other (Recent cocaine use) Treatments Prior to Arrival: none - Related Data Home Medications Medication Instructions Recorded Confirmed Last Taken Aspirin [Aspirin BABY CHEW TAB] 81 mg PO QDAY 07/12/15 07/10/19 04/13/16 Nitroglycerin [Nitrostat] 0.4 mg SL Q5M PRN 07/12/15 07/10/19 04/13/16 lisinopriL [Zestril TAB] 5 mg PO QDAY 07/12/15 07/10/19 04/13/16 Folic Acid [Folvite] 1 mg PO QDAY 04/13/16 07/10/19 04/13/16 Simvastatin [Zocor TAB] 2 mg PO QDAY 04/13/16 07/10/19 04/13/16 carvediloL [Coreg] 3.125 mg PO BID 04/13/16 07/10/19 04/13/16 Previous Rx's Medication Instructions Recorded Last Taken Type Ketorolac [Toradol] 10 mg PO Q6H PRN #20 tablet 03/20/21 Unknown Rx Nitroglycerin [Nitrostat] 0.4 mg SL Q5M PRN #5 tab 06/11/21 Unknown Rx lisinopriL [Lisinopril] 10 mg PO DAILY 90 Days #90 tablet 06/11/21 Unknown Rx Allergies Allergy/AdvReac Type Severity Reaction Status Date / Time No Known Allergies Allergy Verified 07/10/19 18:22 Heart Score - HEART Score History: Slightly suspicious EKG: Normal Age: 45-65 Risk factors: 1-2 risk factors Troponin: < normal limit HEART Score: 2 - EKG Read Time Time EKG Completed: 07:35 EKG Read Time: 07:48 - Critical Actions Critical Actions: 0-3 pts:0.9-1.7%risk of adverse cardiac event.Candidate for discharge ED Review of Systems ROS: Stated complaint: CHEST PAIN Other details as noted in HPI Comment: All other systems reviewed and negative Constitutional: denies: fever, malaise Respiratory: shortness of breath Cardiovascular: chest pain Gastrointestinal: denies: abdominal pain, nausea, vomiting ED Past Medical Hx - Past Medical History Previous Medical History?: Yes Hx Hypertension: Yes Hx Heart Attack/AMI: Yes (5) Hx Congestive Heart Failure: No Hx Diabetes: No Hx Asthma: No Hx COPD: No Additional medical history: high cholestrol - Surgical History Past Surgical History?: Yes Hx Coronary Stent: Yes Additional Surgical History: cath - Social History Smoking Status: Current Every Day Smoker Substance Use Type: Cocaine, Marijuana - Medications Home Medications: Home Medications Medication Instructions Recorded Confirmed Last Taken Type Aspirin [Aspirin BABY CHEW TAB] 81 mg PO QDAY 07/12/15 07/10/19 04/13/16 History Nitroglycerin [Nitrostat] 0.4 mg SL Q5M PRN 07/12/15 07/10/19 04/13/16 History lisinopriL [Zestril TAB] 5 mg PO QDAY 07/12/15 07/10/19 04/13/16 History Folic Acid [Folvite] 1 mg PO QDAY 04/13/16 07/10/19 04/13/16 History Simvastatin [Zocor TAB] 2 mg PO QDAY 04/13/16 07/10/19 04/13/16 History carvediloL [Coreg] 3.125 mg PO BID 04/13/16 07/10/19 04/13/16 History Ketorolac [Toradol] 10 mg PO Q6H PRN #20 tablet 05/17/21 Unknown Rx Nitroglycerin [Nitrostat] 0.4 mg SL Q5M PRN #5 tab 06/11/21 Unknown Rx lisinopriL [Lisinopril] 10 mg PO DAILY 90 Days #90 tablet 06/11/21 Unknown Rx ED Physical Exam - General Limitations: No Limitations General appearance: alert, in no apparent distress - Head Head exam: Present: atraumatic, normocephalic - Eye Eye exam: Present: normal appearance - ENT ENT exam: Present: mucous membranes moist - Neck Neck exam: Present: normal inspection, full ROM - Respiratory Respiratory exam: Present: normal lung sounds bilaterally. Absent: respiratory distress, wheezes, rales, rhonchi - Cardiovascular Cardiovascular Exam: Present: regular rate, normal rhythm, normal heart sounds. Absent: systolic murmur, diastolic murmur, rubs, gallop - GI/Abdominal GI/Abdominal exam: Present: soft, normal bowel sounds. Absent: distended, tenderness, guarding, rebound - Rectal Rectal exam: Present: deferred - Extremities Exam Extremities exam: Present: normal inspection - Neurological Exam Neurological exam: Present: alert, oriented X3 - Psychiatric Psychiatric exam: Present: normal affect, normal mood - Skin Skin exam: Present: warm, dry, intact, normal color. Absent: rash ED Course Vital Signs 06/11/21 07:16 Temperature 97.3 F L Pulse Rate 88 Respiratory 16 Rate Blood Pressure 150/100 O2 Sat by Pulse 97 Oximetry BERRY score - Berry Score Age > 65: (0) No Aspirin use within the Past 7 Days: (1) Yes 3 or more CAD Risk Factors: (1) Yes 2 or more Angina events in past 24 hrs: (1) Yes Known CAD with more than 50% Stenosis: (0) No Elevated Cardiac Markers: (0) No ST Deviation Greater than 0.5mm: (0) No BERRY Score: 3 ED Medical Decision Making - Lab Data Result diagrams: 06/11/21 07:42 06/11/21 07:42 Laboratory Results - last 24 hr 06/11/21 06/11/21 06/11/21 07:42 07:42 10:14 WBC 7.7 RBC 4.68 Hgb 15.3 H Hct 44.2 MCV 94 MCH 33 H MCHC 35 H RDW 14.2 Plt Count 218 Lymph % (Auto) 34.1 [place] % (Auto) 8.4 H Eos % (Auto) 1.6 Baso % (Auto) 0.7 Lymph # (Auto) 2.6 [place] # (Auto) 0.7 Eos # (Auto) 0.1 Baso # (Auto) 0.1 Seg Neutrophils % 55.2 Seg Neutrophils # 4.3 Sodium 134 L Potassium 3.7 Chloride 96.5 L Carbon Dioxide 25 Anion Gap 16 BUN 23 H Creatinine 1.3 Estimated GFR > 60 BUN/Creatinine Ratio 18 Glucose 87 Calcium 9.7 Total Bilirubin 0.70 AST 39 ALT 23 Alkaline Phosphatase 90 Troponin T < 0.010 < 0.010 Total Protein 7.8 Albumin 4.7 Albumin/Globulin Ratio 1.5 - EKG Data -: EKG Interpreted by Me EKG shows normal: sinus rhythm, axis, intervals Rate: normal - EKG Data Interpretation: LVH 06/11/21 11:13 EKG@0735 EKG interpreted by me Rate 80 bpm normal sinus rhythm normal axis normal intervals positive LVH no ST elevation nonischemic T wave pattern - Radiology Data Radiology results: report reviewed [facility] [address] [place] [address] XRay Report Signed Patient: CARLITOS CEBALLOS MR#: [id number] 2 : 1965 Acct:[id number] Age/Sex: 56 / M ADM Date: 06/11/21 Loc: ED Attending Dr: Ordering Physician: VISHAL CHÁVEZ MD Date of Service: 06/11/21 Procedure(s): XR chest routine 2V Accession Number(s): [id number] cc: VISHAL CHÁVEZ MD Fluoro Time In Minutes: CHEST 2 VIEWS INDICATION: chestpain. COMPARISON: None. FINDINGS: Support devices: None. Heart: Within normal limits. Lungs/Pleura: No acute air space or interstitial disease. No significant pleural effusion. IMPRESSION: No acute findings. Signer Name: Jed Crowe MD Signed: 06/11/2021 8:21 AM Workstation Name: [id number] Transcribed By: ES Dictated By: Jed Crowe MD Electronically Authenticated By: Jed Crowe MD Signed Date/Time: 06/11/21820 DD/ 9 TD/TT: - Medical Decision Making Mr. Westley is a 56-year-old male with recurrent chest pain and cocaine dependence. Troponin x2 both negative. EKG without ischemic changes. No evidence of infarct. Chest radiograph negative for acute process. Diagnosis stable angina induced by cocaine use. I will prescribe nitroglycerin lisinopr il.. After reviewing inpatient cardiac work-ups in 2019 seen in 2015, patient does not have coronary artery disease. Critical care attestation.: If time is entered above; I have spent that time in minutes in the direct care of this critically ill patient, excluding procedure time. ED Disposition Clinical Impression: Stable angina, Cocaine abuse Disposition: - TO HOME OR SELFCARE Is pt being admited?: No Does the pt Need Aspirin: No Condition: Stable Instructions: Angina, [id number], Stimulant Use Disorder-Cocaine, Finding Treatment for Addiction Prescriptions: lisinopriL [Lisinopril] 10 mg PO DAILY 90 Days #90 tablet Nitroglycerin [Nitrostat] 0.4 mg SL Q5M PRN #5 tab PRN Reason: Chest Pain Referrals: MARILU COELHO MD [Staff Physician] - 3-5 Days
--- NOTE | 2021-06-11 13:40 | Electrocardiograph Report ---
[facility] Test Date: 2021-06-11 Test Time: 07:35:26 Pat Name: CARLITOS CEBALLOS Department: Room: Gender: M Air Table Operator: RKOKU : 1965 Requested By: YEVGENIY TAMEZ Order Number: [id number] Reading MD: Fiordaliza Hernandez Measurements Intervals [place] Rate: 80 P: 69 [place]: 137 QRS: 40 QRSD: 109 T: 9 QT: 406 QTc: 468 Interpretive Statements Sinus rhythm Probable left ventricular hypertrophy No previous ECG available for comparison Electronically Signed On 06-11-2021 13:40:31 EDT by Fiordaliza Hernandez
== END 2021-06-11 11:45 | disposition home or self-care (01) ==
LOC: ED 06:55
DX: I20.9 Angina pectoris, unspecified (principal); F12.10 Cannabis abuse, uncomplicated; I10 Essential (primary) hypertension; I25.2 Old myocardial infarction; F17.200 Nicotine dependence, unspecified, uncomplicated; F14.10 Cocaine abuse, uncomplicated
CPT/HCPCS: 36415; 71046; 80053; 84484; 85025; 93005; 99283

== ENCOUNTER 2021-07-13 03:13 | Emergency (ER) | payer SELFPAY ==
[2021-07-13 04:30] LABS: Basophils # (Auto) 0.1 K/mm3 (0.0-0.1); Basophils % (Auto) 0.5 % (0.0-1.8); Eosinophils # (Auto) 0.1 K/mm3 (0.0-0.4); Eosinophils % (Auto) 0.5 % (0.0-4.3); Hematocrit 47.6 % (35.5-45.6); Hemoglobin 16.2 gm/dl (11.8-15.2); Lymphocytes # (Auto) 2.6 K/mm3 (1.2-5.4); Mean Corpuscular HGB Conc 34 % (32-34); Mean Corpuscular Volume 94 fl (84-94); Monocytes # (Auto) 0.7 K/mm3 (0.0-0.8); Monocytes % (Auto) 5.5 % (0.0-7.3); Platelet Count 219 K/mm3 (140-440); Red Blood Count 5.06 M/mm3 (3.65-5.03); Red Cell Distribution Width 13.9 % (13.2-15.2)
[2021-07-13 04:55] LABS: Alanine Aminotransferase 19 units/L (7-56); Albumin 5.2 g/dL (3.9-5); BUN/Creatinine Ratio 15; Blood Urea Nitrogen 21 mg/dL (9-20); Calcium 10.6 mg/dL (8.4-10.2); Hemolysis Index 6
--- NOTE | 2021-07-13 05:01 | XRay Report ---
CHEST PA AND LATERAL VIEWS INDICATION: chest pain. COMPARISON: 06/11/2021 FINDINGS: Support devices: None. Heart: Within normal limits. Lungs/Pleura: No acute pulmonary or pleural findings. IMPRESSION: 1. No acute findings. Signer Name: Quang Martin MD Signed: 07/13/2021 4:57 AM Workstation Name: [id number]
--- NOTE | 2021-07-13 08:30 | Emergency Department Report ---
ED Chest Pain HPI - General Chief Complaint: Chest Pain Stated Complaint: CHEST PAIN Time Seen by Provider: 07/13/21 08:26 Source: patient, EMS Mode of arrival: Stretcher Limitations: No Limitations - History of Present Illness Initial Comments: Chief complaint: "Me and my got into it. I took 4 Percocets a shot and some cocaine." HPI: This 56-year-old male with history of CAD, MA, tobacco dependence, hypertension who presents with chest pain. After verbal argument with his , patient ingested 4 tablets of Percocet, 1 shot of liquor and snorted cocaine. He subsequently developed chest pain. Chest pain lasted several minutes. Central chest no radiation. He had associated shortness of breath. Chest pain has resolved. This occurred several hours prior to arrival. Patient does not have cardiac stents. He admits that previous MIs were related to cocaine use. He was diagnosed with cocaine induced cardiac events that [facility]. I reviewed electronic record. In 2019, patient underwent stress test which was negative for myocardial ischemia. In 2014 left heart catheterization performed at this hospital detected normal coronary artery disease. MD Complaint: chest pain -: Gradual, Last night, This morning Onset: during rest Pain Location: substernal Pain Radiation: none Severity: moderate Quality: tightness, heaviness Consistency: now resolved Improves With: nothing Worsens With: other (Cocaine use) Treatments Prior to Arrival: none - Related Data Home Medications Medication Instructions Recorded Confirmed Last Taken Aspirin [Aspirin BABY CHEW TAB] 81 mg PO QDAY 07/12/15 07/10/19 04/13/16 Nitroglycerin [Nitrostat] 0.4 mg SL Q5M PRN 07/12/15 07/10/19 04/13/16 lisinopriL [Zestril TAB] 5 mg PO QDAY 07/12/15 07/10/19 04/13/16 Folic Acid [Folvite] 1 mg PO QDAY 04/13/16 07/10/19 04/13/16 Simvastatin [Zocor TAB] 2 mg PO QDAY 04/13/16 07/10/19 04/13/16 carvediloL [Coreg] 3.125 mg PO BID 04/13/16 07/10/19 04/13/16 Previous Rx's Medication Instructions Recorded Last Taken Type Ketorolac [Toradol] 10 mg PO Q6H PRN #20 tablet 03/20/21 Unknown Rx Nitroglycerin [Nitrostat] 0.4 mg SL Q5M PRN #5 tab 06/11/21 Unknown Rx lisinopriL [Lisinopril] 10 mg PO DAILY 90 Days #90 tablet 06/11/21 Unknown Rx Allergies Allergy/AdvReac Type Severity Reaction Status Date / Time No Known Allergies Allergy Verified 07/10/19 18:22 Heart Score - HEART Score History: Slightly suspicious EKG: Non-specific Age: 45-65 Risk factors: 1-2 risk factors Troponin: < normal limit HEART Score: 3 - EKG Read Time Time EKG Completed: 04:03 EKG Read Time: 04:05 - Critical Actions Critical Actions: 0-3 pts:0.9-1.7%risk of adverse cardiac event.Candidate for discharge ED Review of Systems ROS: Stated complaint: CHEST PAIN Other details as noted in HPI Comment: All other systems reviewed and negative Constitutional: denies: fever, malaise Respiratory: shortness of breath. denies: cough Cardiovascular: chest pain Gastrointestinal: denies: abdominal pain, nausea, vomiting ED Past Medical Hx - Past Medical History Previous Medical History?: Yes Hx Hypertension: Yes Hx Heart Attack/AMI: Yes (5) Hx Congestive Heart Failure: No Hx Diabetes: No Hx Asthma: No Hx COPD: No Additional medical history: high cholestrol - Surgical History Past Surgical History?: Yes Additional Surgical History: Left heart cardiac catheterization - Social History Smoking Status: Current Every Day Smoker Substance Use Type: Cocaine, Marijuana - Medications Home Medications: Home Medications Medication Instructions Recorded Confirmed Last Taken Type Aspirin [Aspirin BABY CHEW TAB] 81 mg PO QDAY 07/12/15 07/10/19 04/13/16 History Nitroglycerin [Nitrostat] 0.4 mg SL Q5M PRN 07/12/15 07/10/19 04/13/16 History lisinopriL [Zestril TAB] 5 mg PO QDAY 07/12/15 07/10/19 04/13/16 History Folic Acid [Folvite] 1 mg PO QDAY 04/13/16 07/10/19 04/13/16 History Simvastatin [Zocor TAB] 2 mg PO QDAY 04/13/16 07/10/19 04/13/16 History carvediloL [Coreg] 3.125 mg PO BID 04/13/16 07/10/19 04/13/16 History Ketorolac [Toradol] 10 mg PO Q6H PRN #20 tablet 03/20/21 Unknown Rx Nitroglycerin [Nitrostat] 0.4 mg SL Q5M PRN #5 tab 06/11/21 Unknown Rx lisinopriL [Lisinopril] 10 mg PO DAILY 90 Days #90 tablet 06/11/21 Unknown Rx ED Physical Exam - General Limitations: No Limitations General appearance: alert, in no apparent distress - Head Head exam: Present: atraumatic, normocephalic - Eye Eye exam: Present: normal appearance - ENT ENT exam: Present: mucous membranes moist - Neck Neck exam: Present: normal inspection, full ROM - Respiratory Respiratory exam: Present: normal lung sounds bilaterally. Absent: respiratory distress, wheezes, rales, rhonchi - Cardiovascular Cardiovascular Exam: Present: regular rate, normal rhythm, normal heart sounds. Absent: systolic murmur, diastolic murmur, rubs, gallop - GI/Abdominal GI/Abdominal exam: Present: soft, normal bowel sounds. Absent: distended, tenderness, guarding, rebound - Rectal Rectal exam: Present: deferred - Extremities Exam Extremities exam: Present: normal inspection - Back Exam Back exam: Present: normal inspection - Neurological Exam Neurological exam: Present: alert, oriented X3 - Psychiatric Psychiatric exam: Present: normal affect, normal mood - Skin Skin exam: Present: warm, dry, intact, normal color. Absent: rash BERRY score - Berry Score Age > 65: (0) No Aspirin use within the Past 7 Days: (1) Yes 3 or more CAD Risk Factors: (1) Yes 2 or more Angina events in past 24 hrs: (1) Yes Known CAD with more than 50% Stenosis: (0) No Elevated Cardiac Markers: (0) No ST Deviation Greater than 0.5mm: (0) No BERRY Score: 3 ED Medical Decision Making - Lab Data Result diagrams: 07/13/21 04:13 07/13/21 04:13 - EKG Data -: EKG Interpreted by Me EKG shows normal: sinus rhythm, axis, intervals, QRS complexes Rate: normal - EKG Data 07/13/21 08:50 EKG obtained 0403 EKG interpreted by me Rate 90 bpm normal axis prolonged QTC positive LVH no ST elevation nonischemic T wave pattern - Radiology Data Radiology results: report reviewed Patient Name: CARLITOS CEBALLOS Gender: Male Date of : 1965 Referring Provider: VISHAL CHÁVEZ Organization: [facility] Accession Number: [id number] Requested Date: July 13, 2021 03:55 Report Status: Final Requested Procedure: 1 Procedure Description: XR chest routine 2V Modality: XR Findings Reporting MD: Quang Martin Dictation Time: July 13, 2021 03:57 Spice Grinder: Not available Senior Business Broker Date: CHEST PA AND LATERAL VIEWS INDICATION: chest pain. COMPARISON: 06/11/2021 FINDINGS: Support devices: None. Heart: Within normal limits. Lungs/Pleura: No acute pulmonary or pleural findings. IMPRESSION: 1. No acute findings. Signer Name: Quang Martin MD Signed: 07/13/2021 3:57 AM Workstation Name: [id number] - Medical Decision Making Chest pain associated with cocaine use: MA ruled out with troponin x2. No ischemia on EKG. Patient is currently chest pain-free. Recommended cessation o f drug use. Recommend cessation of tobacco use. Referred to cardiology. Referral request faxed to [facility]. Patient also given referral to internal medicine physician for primary care. Discharged home. Critical care attestation.: If time is entered above; I have spent that time in minutes in the direct care of this critically ill patient, excluding procedure time. ED Disposition Clinical Impression: Cocaine dependence, Stable angina Disposition: HOME / SELF CARE / HOMELESS Is pt being admited?: No Does the pt Need Aspirin: No Condition: Stable Instructions: Finding Treatment for Addiction, Stimulant Use Disorder-Cocaine Referrals: MARILU COELHO MD [Staff Physician] - 3-5 Days KAMINI MASON MD [Staff Physician] - 3-5 Days
--- NOTE | 2021-07-13 10:11 | Electrocardiograph Report ---
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
== END 2021-07-13 09:15 | disposition home or self-care (01) ==
LOC: ED 03:13
DX: I20.8 Other forms of angina pectoris (principal); I11.9 Hypertensive heart disease without heart failure; F14.20 Cocaine dependence, uncomplicated; E78.00 Pure hypercholesterolemia, unspecified; Z98.890 Other specified postprocedural states; F17.290 Nicotine dependence, other tobacco product, uncomplicated
CPT/HCPCS: 36415; 71046; 80053; 84484; 85025; 93005; 99284

== ENCOUNTER 2021-10-10 15:53 | Emergency (ER) | payer SELFPAY ==
--- NOTE | 2021-10-10 16:21 | Emergency Department Report ---
ED ENT HPI - General Chief complaint: Dental/Oral Stated complaint: BUMPS ON TONGUE Time Seen by Provider: 10/10/21 16:08 Source: patient Mode of arrival: Ambulatory Limitations: No Limitations - History of Present Illness Initial comments: 56-year-old male presents to the ER today with complaints of pain to his tongue as well as bumps. Patient states that has been having the symptoms off and on for a while. He states that the symptoms flared up again about a month ago. He states that he has been here 3 times for similar symptoms but has never follow- up with ENT. He states that typically we give him a mouthwash which seems to help. He reports no difficulty swallowing, dental pain, facial or throat swelling, difficulty opening his mouth or drooling, fever or chills. MD complaint: other (Tongue pain ) -: month(s) - Related Data Home Medications Medication Instructions Recorded Confirmed Last Taken Aspirin [Aspirin BABY CHEW TAB] 81 mg PO QDAY 07/12/15 07/10/19 04/13/16 Nitroglycerin [Nitrostat] 0.4 mg SL Q5M PRN 07/12/15 07/10/19 04/13/16 lisinopriL [Zestril TAB] 5 mg PO QDAY 07/12/15 07/10/19 04/13/16 Folic Acid [Folvite] 1 mg PO QDAY 04/13/16 07/10/19 04/13/16 Simvastatin [Zocor TAB] 2 mg PO QDAY 04/13/16 07/10/19 04/13/16 carvediloL [Coreg] 3.125 mg PO BID 04/13/16 07/10/19 04/13/16 Previous Rx's Medication Instructions Recorded Last Taken Type Ketorolac [Toradol] 10 mg PO Q6H PRN #20 tablet 03/20/21 Unknown Rx Nitroglycerin [Nitrostat] 0.4 mg SL Q5M PRN #5 tab 06/11/21 Unknown Rx lisinopriL [Lisinopril] 10 mg PO DAILY 90 Days #90 tablet 06/11/21 Unknown Rx Nystas/Diphen/Xyl Visc/Mylanta 15 ml MM Q4H PRN #100 ml 10/10/21 Unknown Rx [Magic Mouthwash] Allergies Allergy/AdvReac Type Severity Reaction Status Date / Time No Known Allergies Allergy Verified 07/10/19 18:22 ED Dental HPI - General Chief complaint: Dental/Oral Stated complaint: BUMPS ON TONGUE Time Seen by Provider: 10/10/21 16:08 Source: patient Mode of arrival: Ambulatory Limitations: No Limitations - Related Data Home Medications Medication Instructions Recorded Confirmed Last Taken Aspirin [Aspirin BABY CHEW TAB] 81 mg PO QDAY 07/12/15 07/10/19 04/13/16 Nitroglycerin [Nitrostat] 0.4 mg SL Q5M PRN 07/12/15 07/10/19 04/13/16 lisinopriL [Zestril TAB] 5 mg PO QDAY 07/12/15 07/10/19 04/13/16 Folic Acid [Folvite] 1 mg PO QDAY 04/13/16 07/10/19 04/13/16 Simvastatin [Zocor TAB] 2 mg PO QDAY 04/13/16 07/10/19 04/13/16 carvediloL [Coreg] 3.125 mg PO BID 04/13/16 07/10/19 04/13/16 Previous Rx's Medication Instructions Recorded Last Taken Type Ketorolac [Toradol] 10 mg PO Q6H PRN #20 tablet 03/20/21 Unknown Rx Nitroglycerin [Nitrostat] 0.4 mg SL Q5M PRN #5 tab 06/11/21 Unknown Rx lisinopriL [Lisinopril] 10 mg PO DAILY 90 Days #90 tablet 06/11/21 Unknown Rx Nystas/Diphen/Xyl Visc/Mylanta 15 ml MM Q4H PRN #100 ml 10/10/21 Unknown Rx [Magic Mouthwash] Allergies Allergy/AdvReac Type Severity Reaction Status Date / Time No Known Allergies Allergy Verified 07/10/19 18:22 ED Review of Systems ROS: Stated complaint: BUMPS ON TONGUE Other details as noted in HPI Comment: All other systems reviewed and negative Constitutional: denies: chills, fever Eyes: denies: eye pain, eye discharge, vision change ENT: other (tongue pain ). denies: ear pain, throat pain, dental pain, hearing loss, epistaxis, congestion Respiratory: denies: cough, shortness of breath, SOB with exertion, SOB at rest, wheezing Cardiovascular: denies: chest pain, palpitations Gastrointestinal: denies: abdominal pain, nausea, diarrhea, constipation, hematemesis, melena, hematochezia Genitourinary: denies: urgency, dysuria, frequency, hematuria, testicular pain, testicular mass Musculoskeletal: denies: back pain, joint swelling, arthralgia Skin: denies: rash, lesions, change in color, change in hair/nails, pruritus Neurological: denies: headache, weakness, numbness, paresthesias, confusion, abnormal gait, vertigo Psychiatric: denies: anxiety, depression, auditory hallucinations, visual hallucinations, homicidal thoughts, suicidal thoughts Hematological/Lymphatic: denies: easy bleeding, easy bruising, swollen glands ED Past Medical Hx - Past Medical History Hx Hypertension: Yes Hx Heart Attack/AMI: Yes (5) Hx Congestive Heart Failure: No Hx Diabetes: No Hx Asthma: No Hx COPD: No Additional medical history: high cholestrol - Surgical History Hx Coronary Stent: Yes Additional Surgical History: Left heart cardiac catheterization - Social History Smoking Status: Current Every Day Smoker Substance Use Type: Cocaine, Marijuana - Medications Home Medications: Home Medications Medication Instructions Recorded Confirmed Last Taken Type Aspirin [Aspirin BABY CHEW TAB] 81 mg PO QDAY 07/12/15 07/10/19 04/13/16 History Nitroglycerin [Nitrostat] 0.4 mg SL Q5M PRN 07/12/15 07/10/19 04/13/16 History lisinopriL [Zestril TAB] 5 mg PO QDAY 07/12/15 07/10/19 04/13/16 History Folic Acid [Folvite] 1 mg PO QDAY 04/13/16 07/10/19 04/13/16 History Simvastatin [Zocor TAB] 2 mg PO QDAY 04/13/16 07/10/19 04/13/16 History carvediloL [Coreg] 3.125 mg PO BID 04/13/16 07/10/19 04/13/16 History Ketorolac [Toradol] 10 mg PO Q6H PRN #20 tablet 03/20/21 Unknown Rx Nitroglycerin [Nitrostat] 0.4 mg SL Q5M PRN #5 tab 06/11/21 Unknown Rx lisinopriL [Lisinopril] 10 mg PO DAILY 90 Days #90 tablet 06/11/21 Unknown Rx Nystas/Diphen/Xyl Visc/Mylanta 15 ml MM Q4H PRN #100 ml 10/10/21 Unknown Rx [Magic Mouthwash] ED Physical Exam - General Limitations: No Limitations General appearance: alert, in no apparent distress - Head Head exam: Present: atraumatic, normocephalic, normal inspection - Eye Eye exam: Present: normal appearance, PERRL, EOMI Pupils: Present: normal accommodation - ENT ENT exam: Present: normal exam, mucous membranes moist, other (No apparent abnormality noticed the patient home) - Neck Neck exam: Present: normal inspection, full ROM. Absent: meningismus - Respiratory Respiratory exam: Present: normal lung sounds bilaterally. Absent: respiratory distress - Cardiovascular Cardiovascular Exam: Present: regular rate, normal rhythm, normal heart sounds - Neurological Exam Neurological exam: Present: alert, oriented X3, CN II-XII intact, normal gait - Psychiatric Psychiatric exam: Present: normal affect, normal mood Critical care attestation.: If time is entered above; I have spent that time in minutes in the direct care of this critically ill patient, excluding procedure time. ED Disposition Clinical Impression: Tongue pain Disposition: HOME / SELF CARE / HOMELESS Is pt being admited?: No Does the pt Need Aspirin: No Condition: Stable Instructions: Glossitis Additional Instructions: Recommend the use of Magic mouthwash as prescribed. Most importantly since this is a recurrent problem for you do recommend that you follow-up with ENT listed on your discharge instructions. Return to the ER if anything changes Prescriptions: Nystas/Diphen/Xyl Visc/Mylanta [Magic Mouthwash] 15 ml MM Q4H PRN #100 ml PRN Reason: pain Referrals: ABIDA BARBA MD [Staff Physician] - 3-5 Days Time of Disposition: 16:21
[2021-10-10 16:38] VITALS: BP 142/79
== END 2021-10-10 16:37 | disposition home or self-care (01) ==
LOC: ED 15:53
DX: K14.0 Glossitis (principal); I11.0 Hypertensive heart disease with heart failure; I50.9 Heart failure, unspecified; E78.00 Pure hypercholesterolemia, unspecified; F17.290 Nicotine dependence, other tobacco product, uncomplicated; Z95.5 Presence of coronary angioplasty implant and graft; Z79.899 Other long term (current) drug therapy
CPT/HCPCS: 99282

== ENCOUNTER 2022-02-19 15:30 | Emergency (ER) | payer SELFPAY ==
[2022-02-19 17:22] VITALS: BP 128/92
== END 2022-02-19 22:27 | disposition left against medical advice (07) ==
LOC: ED 15:30
DX: K40.90 Unilateral inguinal hernia, without obstruction or gangrene, not specified as recurrent (principal); Z53.21 Procedure and treatment not carried out due to patient leaving prior to being seen by health care provider

== ENCOUNTER 2022-05-11 02:14 | Inpatient (IN) | payer SELFPAY ==
[2022-05-11] MEDS ORDERED: NITROGLYCERIN 2% OINT 1 GM TP ONE (02:41)
[2022-05-11] MEDS ORDERED: fentaNYL 100 MCG/2 ML INJ IV ONE (02:41)
[2022-05-11] MEDS ORDERED: ONDANSETRON 4 MG/2 ML INJ IV ONE (02:41)
--- NOTE | 2022-05-11 02:46 | Emergency Department Report ---
HPI - General Chief Complaint: Chest Pain Time Seen by Provider: 05/11/22 02:34 - HPI HPI: Room 24 The patient is a 57-year-old male present with a chief complaint of chest pain. Patient states approximately 2 to 3 hours ago he developed left-sided chest pain that was constant in nature and feels as though someone is sitting on his chest. Patient admits to shortness of breath, diaphoresis and nausea without vomiting associated with this pain. Patient states she has a history of hypertension, high cholesterol and last use cocaine approximate 2 weeks ago. Patient states he had a cardiac cath with a heart stent placed in 2015. Patient states he has not had a cardiac cath since then. Patient currently gets his chest pain a score of 10/10 ED Past Medical Hx - Past Medical History Previous Medical History?: Yes Hx Hypertension: Yes Hx Heart Attack/AMI: Yes () Additional medical history: high cholestrol - Surgical History Past Surgical History?: Yes Hx Coronary Stent: Yes (2015) Additional Surgical History: Left heart cardiac catheterization - Family History Family history: no significant - Social History Smoking Status: Current Every Day Smoker (1/4 pack/day) Substance Use Type: Alcohol (Occasional), Cocaine - Medications Home Medications: Home Medications Medication Instructions Recorded Confirmed Last Taken Type Aspirin [Aspirin BABY CHEW TAB] 81 mg PO QDAY 07/12/15 07/10/19 04/13/16 History Nitroglycerin [Nitrostat] 0.4 mg SL Q5M PRN 07/12/15 07/10/19 04/13/16 History lisinopriL [Zestril TAB] 5 mg PO QDAY 07/12/15 07/10/19 04/13/16 History Folic Acid [Folvite] 1 mg PO QDAY 04/13/16 07/10/19 04/13/16 History Simvastatin [Zocor TAB] 2 mg PO QDAY 04/13/16 07/10/19 04/13/16 History carvediloL [Coreg] 3.125 mg PO BID 04/13/16 07/10/19 04/13/16 History Ketorolac [Toradol] 10 mg PO Q6H PRN #20 tablet 03/20/21 Unknown Rx Nitroglycerin [Nitrostat] 0.4 mg SL Q5M PRN #5 tab 06/11/21 Unknown Rx lisinopriL [Lisinopril] 10 mg PO DAILY 90 Days #90 tablet 06/11/21 Unknown Rx Nystas/Diphen/Xyl Visc/Mylanta 15 ml MM Q4H PRN #100 ml 10/10/21 Unknown Rx [Magic Mouthwash] ED Review of Systems ROS: Stated complaint: CHEST PAINS Other details as noted in HPI Constitutional: diaphoresis Eyes: denies: eye pain ENT: denies: throat pain Respiratory: shortness of breath Cardiovascular: chest pain Endocrine: no symptoms reported Gastrointestinal: nausea. denies: vomiting Genitourinary: denies: dysuria Musculoskeletal: denies: back pain Neurological: denies: headache Physical Exam - Physical Exam Vital Signs: Vital Signs 05/11/22 02:17 Temperature 98.5 F Pulse Rate 109 H Respiratory 18 Rate Blood Pressure 156/82 O2 Sat by Pulse 99 Oximetry Physical Exam: GENERAL: The patient is well-developed well-nourished male lying on stretcher appearing to be in mild discomfort. [] HEENT: Normocephalic. Atraumatic. Extraocular motions are intact. Patient has moist mucous membranes. NECK: Supple. Trachea midline CHEST/LUNGS: Clear to auscultation. There is no respiratory distress noted. HEART/CARDIOVASCULAR: Regular. There is no tachycardia. There is no gallop rub or murmur. ABDOMEN: Abdomen is soft, nontender. Patient has normal bowel sounds. There is no abdominal distention. SKIN: There is no rash. There is no edema. There is no diaphoresis. NEURO: The patient is awake, alert, and oriented. The patient is cooperative. The patient has no focal neurologic deficits. The patient has normal speech. GCS 15 MUSCULOSKELETAL: There is no evidence of acute injury. ED Course Vital Signs 05/11/22 02:17 Temperature 98.5 F Pulse Rate 109 H Respiratory 18 Rate Blood Pressure 156/82 O2 Sat by Pulse 99 Oximetry ED Medical Decision Making - Lab Data Result diagrams: 05/11/22 03:07 05/11/22 03:07 Laboratory Tests 05/11/22 05/11/22 05/11/22 03:07 03:07 03:07 WBC 10.6 RBC 4.74 Hgb 14.8 Hct 44.5 MCV 94 MCH 31 MCHC 33 RDW 13.9 Plt Count 279 Lymph % (Auto) 22.4 [place] % (Auto) 5.5 Eos % (Auto) 0.2 Baso % (Auto) 0.8 Lymph # (Auto) 2.4 [place] # (Auto) 0.6 Eos # (Auto) 0.0 Baso # (Auto) 0.1 Seg Neutrophils % 71.1 H Seg Neutrophils # 7.5 PT 13.0 INR 0.89 Sodium 143 Potassium 4.1 Chloride 102.7 Carbon Dioxide 26 Anion Gap 18 BUN 16 Creatinine 1.2 Estimated GFR > 60 BUN/Creatinine Ratio 13 Glucose 87 Calcium 10.3 H Total Creatine Kinase 417 H CK-MB (CK-2) 5.4 H CK-MB (CK-2) Rel Index 1.2 Troponin T < 0.010 - EKG Data -: EKG Interpreted by Me EKG shows normal: sinus rhythm Rate: normal - EKG Data When compared to previous EKG there are: previous EKG unavailable Interpretation: LVH, other (No ischemic changes) - Radiology Data Radiology results: image reviewed (Chest x-ray) interpreted by me: Chest x-ray-no definite focal infiltrates, no pneumothorax - Differential Diagnosis ACS, pericarditis, GERD Critical care attestation.: If time is entered above; I have spent that time in minutes in the direct care of this critically ill patient, excluding procedure time. ED Disposition Clinical Impression: Chest pain Disposition: 09 ADMITTED INPATIENT Is pt being admited?: Yes Does the pt Need Aspirin: Yes Condition: Fair Instructions: Nonspecific Chest Pain, Adult Time of Disposition: 04:03 (Care transferred to hospitalist (Dr. Cui)) Heart Score - HEART Score History: Highly suspicious EKG: Non-specific Age: 45-65 Risk factors: > 3 risk factors or hx of atherosclerotic disease Troponin: < normal limit HEART Score: 6 - EKG Read Time Time EKG Completed: 02:43 EKG Read Time: 02:52
[2022-05-11 03:23] LABS: Basophils # (Auto) 0.1 K/mm3 (0.0-0.1); Basophils % (Auto) 0.8 % (0.0-1.8); Eosinophils % (Auto) 0.2 % (0.0-4.3); Hematocrit 44.5 % (35.5-45.6); Hemoglobin 14.8 gm/dl (11.8-15.2); Lymphocytes # (Auto) 2.4 K/mm3 (1.2-5.4); Lymphocytes % (Auto) 22.4 % (13.4-35.0); Mean Corpuscular HGB Conc 33 % (32-34); Mean Corpuscular Volume 94 fl (84-94); Monocytes # (Auto) 0.6 K/mm3 (0.0-0.8); Monocytes % (Auto) 5.5 % (0.0-7.3); Platelet Count 279 K/mm3 (140-440); Red Blood Count 4.74 M/mm3 (3.65-5.03); Red Cell Distribution Width 13.9 % (13.2-15.2)
--- NOTE | 2022-05-11 03:25 | XRay Report ---
XR chest 1V ap INDICATION / CLINICAL INFORMATION: chest pain. COMPARISON: 07/13/2021 FINDINGS: SUPPORT DEVICES: None. HEART /PULMONARY VASCULATURE: No significant abnormality. LUNGS / PLEURA: No significant pulmonary or pleural abnormality. No pneumothorax. ADDITIONAL FINDINGS: No significant additional findings. IMPRESSION: 1. No acute findings. Signer Name: Jose Rafael Hdz MD Signed: 05/11/2022 3:20 AM Workstation Name: [id number]
[2022-05-11 03:31] LABS: INR 0.89 (0.87-1.13)
[2022-05-11 03:44] LABS: Creatine Kinase MB 5.4 ng/mL (0.0-4.0)
[2022-05-11 03:46] LABS: BUN/Creatinine Ratio 13; Blood Urea Nitrogen 16 mg/dL (9-20); Calcium 10.3 mg/dL (8.4-10.2); Hemolysis Index 10
[2022-05-11] MEDS ORDERED: NITROGLYCERIN 0.4 MG TAB SUBL SL PRN (04:27)
[2022-05-11] MEDS ORDERED: MORPHINE 4 MG/1 ML INJ IV PRN ×2 (04:27)
[2022-05-11] MEDS ORDERED: ONDANSETRON 4 MG/2 ML INJ IV PRN (04:27)
[2022-05-11] MEDS ORDERED: ACETAMINOPHEN 325 MG TAB PO PRN ×2 (04:27)
[2022-05-11] MEDS ORDERED: traMADol 50 MG TAB PO PRN (04:27)
--- NOTE | 2022-05-11 04:40 | History and Physical Report ---
History of Present Illness Date of examination: 05/11/22 Date of admission: 05/11/2022 Chief complaint: Chest pain History of present illness: 57-year-old -[place] male with known history of coronary artery disease with stent placement in the past, hypertension and hyperlipidemia presenting to the emergency room today complaining of chest pain. Chest pain was said to be left-sided and has been ongoing for about 3 hours prior to reporting to the emergency room. Patient states he was walking when his chest pain suddenly started. Pain was crushing in nature already has been no radiation. No no relieving or exacerbating factor. Patient denies any nausea or vomiting, no headache or dizziness and no diaphoresis. Denies any shortness of breath. Patient admits to using cocaine about 2 weeks ago. Patient states he has had stress test and cardiac cath in the past. Review of patient's record indicates that he had a stress test 2018 and was within normal limits. He had a cardiac cath in 2014 which was within normal limits. Work-up in the emergency room today, labs, chest x-ray and EKG has been unremarkable. Patient being admitted for chest pain work-up. Past History Past Medical History: CAD, hypertension Past Surgical History: No surgical history Social history: smoking, other (Occasional Cocaine) Family history: no significant family history Medications and Allergies Allergies Allergy/AdvReac Type Severity Reaction Status Date / Time No Known Allergies Allergy Verified 07/10/19 18:22 Home Medications Medication Instructions Recorded Confirmed Last Taken Type Aspirin [Aspirin BABY CHEW TAB] 81 mg PO QDAY 07/12/15 07/10/19 04/13/16 History Nitroglycerin [Nitrostat] 0.4 mg SL Q5M PRN 07/12/15 07/10/19 04/13/16 History lisinopriL [Zestril TAB] 5 mg PO QDAY 07/12/15 07/10/19 04/13/16 History Folic Acid [Folvite] 1 mg PO QDAY 04/13/16 07/10/19 04/13/16 History Simvastatin [Zocor TAB] 2 mg PO QDAY 04/13/16 07/10/19 04/13/16 History carvediloL [Coreg] 3.125 mg PO BID 04/13/16 07/10/19 04/13/16 History Ketorolac [Toradol] 10 mg PO Q6H PRN #20 tablet 03/20/21 Unknown Rx Nitroglycerin [Nitrostat] 0.4 mg SL Q5M PRN #5 tab 06/11/21 Unknown Rx lisinopriL [Lisinopril] 10 mg PO DAILY 90 Days #90 tablet 06/11/21 Unknown Rx Nystas/Diphen/Xyl Visc/Mylanta 15 ml MM Q4H PRN #100 ml 10/10/21 Unknown Rx [Magic Mouthwash] Review of Systems Constitutional: no fever, no chills Ears, nose, mouth and throat: no nasal congestion, no sore throat Cardiovascular: chest pain, no palpitations Respiratory: no cough, no shortness of breath Gastrointestinal: no abdominal pain, no nausea, no vomiting, no diarrhea Genitourinary Male: no dysuria, no hematuria, no nocturia Musculoskeletal: no neck pain, no low back pain Integumentary: no rash, no pruritis Neurological: no headaches, no confusion Psychiatric: no anxiety, no depression Endocrine: no polyphagia, no polydipsia, no polyuria, no nocturia Exam - Constitutional Vitals: Temp Pulse Resp BP Pulse Ox 98.5 F 86 13 156/75 99 05/11/22 02:17 05/11/22 03:16 05/11/22 02:49 05/11/22 03:16 05/11/22 02:49 General appearance: Present: no acute distress, well-nourished - EENT Eyes: Present: PERRL, EOM intact. Absent: scleral icterus ENT: hearing intact, clear oral mucosa, dentition normal - Neck Neck: Present: supple, normal ROM - Respiratory Respiratory effort: normal Respiratory: bilateral: CTA - Cardiovascular Rhythm: regular Heart Sounds: Present: S1 & S2. Absent: gallop, systolic murmur, diastolic murmur, rub, click - Extremities Extremities: no ischemia, pulses intact, pulses symmetrical, No edema, normal temperature, normal color, Full ROM Peripheral Pulses: within normal limits - Abdominal General gastrointestinal: Present: soft, non-tender, non-distended, normal bowel sounds. Absent: mass - Integumentary Integumentary: Present: clear, warm, dry, normal turgor. Absent: rash - Musculoskeletal Musculoskeletal: strength equal bilaterally - Psychiatric Psychiatric: appropriate mood/affect, intact judgment & insight, memory intact, cooperative - Neurologic Neurologic: CNII-XII intact, no focal deficits, moves all extremities HEART Score - HEART Score History: Moderately suspicious EKG: Non-specific Age: 45-65 Risk factors: > 3 risk factors or hx of atherosclerotic disease Troponin: Troponin T < 0.010 ng/mL (0.00-0.029) 05/11/22 03:07 Troponin: < normal limit HEART Score: 5 Results - Labs CBC & Chem 7: 05/11/22 03:07 05/11/22 03:07 Labs: Abnormal lab results 05/11/22 05/11/22 Range/Units 03:07 03:07 Seg Neutrophils % 71.1 H (40.0-70.0) % Calcium 10.3 H (8.4-10.2) mg/dL Total Creatine Kinase 417 H (55-170) units/L CK-MB (CK-2) 5.4 H (0.0-4.0) ng/mL Assessment and Plan - Patient Problems (1) Chest pain Status: Acute Plan to address problem: Patient with known history of coronary artery disease. We will trend cardiac enzymes. Patient placed on daily aspirin, sublingual nitroglycerin and IV morphine as needed for chest pain. Patient to be scheduled for We will request cardiology evaluation and recommendations (2) Smoking history Status: Acute Plan to address problem: Patient counseled on quitting tobacco abuse. (3) HTN (hypertension) Status: Chronic Plan to address problem: Will resume routine home medications and monitor vital signs closely. (4) DVT prophylaxis Status: Acute Plan to address problem: Patient placed on subcutaneous heparin (5) Full code status Status: Acute Plan to address problem: Patient is full code.
[2022-05-11] MEDS: MORPHINE 2 MG/1 ML INJ IV PRN ×2 (06:07→15:32)
[2022-05-11] MEDS ORDERED: REGADENOSON 0.4 MG/5 ML INJ IV ONE (09:38)
--- NOTE | 2022-05-11 10:47 | Consultation ---
History of Present Illness Consult date: 05/11/22 Consult reason: chest pain History of present illness: Patient is a 57-year-old man with a long history of atypical chest pain, who has undergone multiple cardiac ischemic evaluations in the past several years. In 2014, a cardiac catheterization at this hospital demonstrated angiographically normal coronary arteries. This is being followed by serial normal stress test at this hospital and multiple other hospitals. His left ventricular systolic ejection fraction has been normal at 60% on serial measurements over the years. Lately his medical follow-up has been at the [facility]. He states that he was recently diagnosed with right inguinal hernia, which is awaiting scheduled outpatient repair in the next 2 weeks. He presents to the hospital at this time with poorly characterized atypical and nonexertional chest pain. His pain occurs in different parts of the chest at different times, has no associated symptoms, no shortness of breath, no palpitations and no lower extremity edema. He was seen in the emergency room and evaluated and referred for admission. Chest pain work-up so far: Twelve-lead ECG was normal sinus rhythm, normal ECG. Serial troponin levels were negative. Echocardiogram done showed normal left ventricular systolic function with ejection fraction 55 to 60%. Finally, he had a Lexiscan thallium stress test done today, that showed normal myocardial perfusion and normal left ventricular systolic function with ejection fraction also calculated at 56% by gated SPECT. Past History Past Medical History: CAD, hypertension Past Surgical History: No surgical history Social history: smoking, other (Occasional Cocaine) Family history: no significant family history Medications and Allergies Allergies Allergy/AdvReac Type Severity Reaction Status Date / Time No Known Allergies Allergy Verified 07/10/19 18:22 Home Medications Medication Instructions Recorded Confirmed Last Taken Type Aspirin [Aspirin BABY CHEW TAB] 81 mg PO QDAY 07/12/15 07/10/19 04/13/16 History Nitroglycerin [Nitrostat] 0.4 mg SL Q5M PRN 07/12/15 07/10/19 04/13/16 History lisinopriL [Zestril TAB] 5 mg PO QDAY 07/12/15 07/10/19 04/13/16 History Folic Acid [Folvite] 1 mg PO QDAY 04/13/16 07/10/19 04/13/16 History Simvastatin [Zocor TAB] 2 mg PO QDAY 04/13/16 07/10/1904/13/16 History carvediloL [Coreg] 3.125 mg PO BID 04/13/16 07/10/19 04/13/16 History Ketorolac [Toradol] 10 mg PO Q6H PRN #20 tablet 03/20/21 Unknown Rx Nitroglycerin [Nitrostat] 0.4 mg SL Q5M PRN #5 tab 06/11/21 Unknown Rx lisinopriL [Lisinopril] 10 mg PO DAILY 90 Days #90 tablet 06/11/21 Unknown Rx Nystas/Diphen/Xyl Visc/Mylanta 15 ml MM Q4H PRN #100 ml 10/10/21 Unknown Rx [Magic Mouthwash] Active Meds: Active Medications Acetaminophen (Acetaminophen 325 Mg Tab) 650 mg PO Q6H PRN PRN Reason: Pain, Mild (1-3) Aspirin (Aspirin Ec 325 Mg Tab) 325 mg PO QDAY RICCI Morphine Sulfate (Morphine 4 Mg/1 Ml Inj) 4 mg IV Q4H PRN PRN Reason: Pain , Severe (7-10) Morphine Sulfate (Morphine 2 Mg/1 Ml Inj) 2 mg IV Q4H PRN PRN Reason: Pain, Moderate (4-6) Last Admin: 05/11/22 06:07 Dose: 2 mg Morphine Sulfate (Morphine 4 Mg/1 Ml Inj) 2 mg IV Q5MIN PRN PRN Reason: Chest Pain unrelieved by NTG Nitroglycerin (Nitroglycerin 0.4 Mg Tab Subl) 0.4 mg SL Q5M PRN PRN Reason: Chest Pain Ondansetron HCl (Ondansetron 4 Mg/2 Ml Inj) 4 mg IV Q8H PRN PRN Reason: Nausea And Vomiting Sodium Chloride (Sodium Chloride 0.9% 10 Ml Flush Syringe) 10 ml IV BID RICCI Sodium Chloride (Sodium Chloride 0.9% 10 Ml Flush Syringe) 10 ml IV PRN PRN PRN Reason: LINE FLUSH Tramadol HCl (Tramadol 50 Mg Tab) 50 mg PO Q6H PRN PRN Reason: Pain, Moderate (4-6) Review of Systems Cardiovascular: chest pain, no orthopnea, no palpitations, no rapid/irregular heart beat, no edema, no syncope, no lightheadedness, no shortness of breath Physical Examination Vital Signs Temp Pulse Resp BP Pulse Ox 98.5 F 109 H 18 156/82 99 05/11/22 02:17 05/11/22 02:17 05/11/22 02:17 05/11/22 02:17 05/11/22 02:17 General appearance: no acute distress HEENT: Positive: PERRL Neck: Positive: neck supple Cardiac: Positive: Reg Rate and Rhythm Lungs: Positive: clear to auscultation Neuro: Positive: Grossly Intact Abdomen: Positive: Soft Male genitourinary: Positive: deferred Skin: Positive: Clear Extremities: Absent: edema Results 05/11/22 03:07 05/11/22 03:07 Cardiac Enzymes 05/11/22 Range/Units 03:07 CK-MB (CK-2) 5.4 H (0.0-4.0) ng/mL Coagulation 05/11/22 Range/Units 03:07 PT 13.0 (12.2-14.9) Sec. INR 0.89 (0.87-1.13) CBC 05/11/22 Range/Units 03:07 WBC 10.6 (4.5-11.0) K/mm3 RBC 4.74 (3.65-5.03) M/mm3 Hgb 14.8 (11.8-15.2) gm/dl Hct 44.5 (35.5-45.6) % Plt Count 279 (140-440) K/mm3 Lymph # (Auto) 2.4 (1.2-5.4) K/mm3 [place] # (Auto) 0.6 (0.0-0.8) K/mm3 Eos # (Auto) 0.0 (0.0-0.4) K/mm3 Baso # (Auto) 0.1 (0.0-0.1) K/mm3 Comprehensive Metabolic Panel 05/11/22 Range/Units 03:07 Sodium 143 (137-145) mmol/L Potassium 4.1 (3.6-5.0) mmol/L Chloride 102.7 (98-107) mmol/L Carbon Dioxide 26 (22-30) mmol/L BUN 16 (9-20) mg/dL Creatinine 1.2 (0.8-1.3) mg/dL Glucose 87 (75-100) mg/dL Calcium 10.3 H (8.4-10.2) mg/dL EKG interpretations - Telemetry EKG Rhythm: Sinus Rhythm (Normal ECG) Assessment and Plan - Patient Problems (1) Chest pain Current Visit: No Status: Acute Plan to address problem: Patient with atypical chest pain, normal ECG, normal cardiac enzymes, normal myocardial perfusion study and normal left ventricular systolic function by echocardiogram. Multiple previous evaluations for chest pain including cardiac catheterization in recent years found no significant coronary artery disease. No further cardiac work-up is indicated, patient is stable for discharge from a cardiac standpoint, he is recommended to follow-up with his doctors at [place] in 5 to 7 days.
--- NOTE | 2022-05-11 13:49 | Nuclear Medicine Report ---
APPROVED REPORT Exam: Nuclear Stress Test Indication: Chest pain Patient Location: [facility] Room #: A265 Ht: 6 ft 0 in Wt: 185 lbs BSA: 2.06 m2 HR: 86 bpmBP: 139/85 mmHgBMI: 25.08 Rhythm: Sinus Rhythm Stress Test Details Stress Test: Pharmacologic stress testing performed using 0.4 mg of regadenoson per 5 mL given IV over 10 seconds. Reason for pharmacologic stress test: physical limitation. HR Resting HR: 85 bpm Max HR Achieved: 108 bpm Max Heart Rate (APMHR): 165 bpm Target HR (85% APMHR): 140 bpm % of APMHR: 65 Recovery HR: 99 bpm HR response to stress: Normal HR response to stress BP Resting BP: 122/79 mmHg Max BP: 149/94 mmHg Recovery BP: 126/85 mmHg BP response to stress: Normal blood pressure response to stress. ECG Resting ECG: Sinus Rhythm Stress ECG: Sinus Tachycardia ST Change: None Arrhythmia: None Recovery ECG: Sinus Rhythm Recovery ST Change: None Recovery Arrhythmia: None Clinical Reason for Termination: Completed protocol Stress Symptoms: None Stress ECG Conclusion No chest pain, no ST changes with pharmacologic stress. Myocardial perfusion images are pending. NM EXAM: Myocardial Perfusion REST/STRESS Imaging Protocol: Rest Tc-99m/Stress Tc-99m 1 day Resting Data Rest SPECT myocardial perfusion imaging was performed in supine position 45 minutes following the intravenous injection of 10 mCi of Tc-99m Myoview. Time of rest injection: 0700 Date: 05/11/2022 Pharmacologic Stress Pharmacologic stress test was performed by injecting Regadenoson 0.4 mg IV push followed by the intravenous injection of 28 mCi of Tc-99m Myoview. Time of stress injection: 10:15:14 Date: 05/11/2022 Gated Stress SPECT was performed 30 minutes after stress injection. The images were gated to evaluate regional wall motion and calculate left ventricular ejection fraction. Study Data TID = 1.04. Perfusion Wall Motion Normal left ventricular systolic function, ejection fraction 56% Nuclear Conclusion ECG Findings: negative for ischemia Clinical Findings: negative for ischemia Nuclear Findings: negative for ischemia Left Ventricular Function: normal Risk Study: low Normal rest and stress myocardial perfusion images, normal left ventricular systolic function, ejection fraction 56%. Normal study. Conclusion No chest pain, no ST changes with pharmacologic stress. Myocardial perfusion images are pending.
--- NOTE | 2022-05-11 14:25 | Death Summary ---
Summary - Providers Date of service: 05/11/22 Consults: 05/11/22 Consult to Cardiac Rehabilitation [CONS] Routine Reason For Exam: Phase I 05/11/22 04:27 Consult to Cardiology [CONS] Routine Consulting Provider: PATRICE BRIAN Reason For Exam: chest pain Attending: TAYLER CARRASCO MD - summary Date of admission: 05/11/22 04:27 Significant findings: 57-year-old -[place] male with known history of coronary artery disease with stent placement in the past, hypertension and hyperlipidemia presenting to the emergency room today complaining of chest pain. Chest pain was said to be left-sided and has been ongoing for about 3 hours prior to reporting to the emergency room. Patient states he was walking when his chest pain suddenly started. Pain was crushing in nature already has been no radiation. No no relieving or exacerbating factor. Patient denies any nausea or vomiting, no headache or dizziness and no diaphoresis. Denies any shortness of breath. Patient admits to using cocaine about 2 weeks ago. Patient states he has had stress test and cardiac cath in the past. Review of patient's record indicates that he had a stress test 2018 and was within normal limits. He had a cardiac cath in 2014 which was within normal limits. Work-up in the emergency room today, labs, chest x-ray and EKG has been unremarkable. Patient being admitted for chest pain work-up. Past History Past Medical History: CAD, hypertension Past Surgical History: No surgical history Social history: smoking, other (Occasional Cocaine) Family history: no significant family history Medications and Allergies Allergies Allergy/AdvReac Type Severity Reaction Status Date / Time No Known Allergies Allergy Verified 07/10/19 18:22 Home Medications Medication Instructions Recorded Confirmed Last Taken Type Aspirin [Aspirin BABY CHEW TAB] 81 mg PO QDAY 07/12/15 07/10/19 04/13/16 History Nitroglycerin [Nitrostat] 0.4 mg SL Q5M PRN 07/12/15 07/10/19 04/13/16 History lisinopriL [Zestril TAB] 5 mg PO QDAY 07/12/15 07/10/19 04/13/16 History Folic Acid [Folvite] 1 mg PO QDAY 04/13/16 07/10/19 04/13/16 History Simvastatin [Zocor TAB] 2 mg PO QDAY 04/13/16 07/10/19 04/13/16 History carvediloL [Coreg] 3.125 mg PO BID 04/13/16 07/10/19 04/13/16 History Ketorolac [Toradol] 10 mg PO Q6H PRN #20 tablet 03/20/21 Unknown Rx Nitroglycerin [Nitrostat] 0.4 mg SL Q5M PRN #5 tab 06/11/21 Unknown Rx lisinopriL [Lisinopril] 10 mg PO DAILY 90 Days #90 tablet 06/11/21 Unknown Rx Nystas/Diphen/Xyl Visc/Mylanta 15 ml MM Q4H PRN #100 ml 10/10/21 Unknown Rx [Magic Mouthwash] Review of Systems Constitutional: no fever, no chills Ears, nose, mouth and throat: no nasal congestion, no sore throat Cardiovascular: chest pain, no palpitations Respiratory: no cough, no shortness of breath Gastrointestinal: no abdominal pain, no nausea, no vomiting, no diarrhea Genitourinary Male: no dysuria, no hematuria, no nocturia Musculoskeletal: no neck pain, no low back pain Integumentary: no rash, no pruritis Neurological: no headaches, no confusion Psychiatric: no anxiety, no depression Endocrine: no polyphagia, no polydipsia, no polyuria, no nocturia Exam - Constitutional Vitals: Temp Pulse Resp BP Pulse Ox 98.5 F 86 13 156/75 99 05/11/22 02:17 05/11/22 03:16 05/11/22 02:49 05/11/22 03:16 05/11/22 02:49 (1) Chest pain Status: Acute Plan to address problem: Patient with known history of coronary artery disease. We will trend cardiac enzymes. Patient placed on daily aspirin, sublingual nitroglycerin and IV morphine as needed for chest pain. Patient to be scheduled for We will request cardiology evaluation and recommendations (2) Smoking history Status: Acute Plan to address problem: Patient counseled on quitting tobacco abuse. (3) HTN (hypertension) Status: Chronic Plan to address problem: Will resume routine home medications and monitor vital signs closely. (4) DVT prophylaxis Status: Acute Plan to address problem: Patient placed on subcutaneous heparin (5) Full code status Status: Acute Plan to address problem: Patient is full code.
--- NOTE | 2022-05-11 14:31 | Discharge Summary ---
Providers - Providers Date of Admission: 05/11/22 04:27 Attending physician: TAYLER CARRASCO MD 05/11/22 Consult to Cardiac Rehabilitation [CONS] Routine Reason For Exam: Phase I 05/11/22 04:27 Consult to Cardiology [CONS] Routine Consulting Provider: PATRICE BRIAN Reason For Exam: chest pain Primary care physician: MARILU COELHO Hospitalization Reason for admission: chest pain Condition: Stable Hospital course: 57-year-old -[place]ian male with known history of coronary artery disease with stent placement in the past, hypertension and hyperlipidemia presenting to the emergency room today complaining of chest pain. Chest pain was said to be left-sided and has been ongoing for about 3 hours prior to reporting to the em ergency room. Patient states he was walking when his chest pain suddenly started. Pain was crushing in nature already has been no radiation. No no relieving or exacerbating factor. Patient denies any nausea or vomiting, no headache or dizziness and no diaphoresis. Denies any shortness of breath. Patient admits to using cocaine about 2 weeks ago. Patient states he has had stress test and cardiac cath in the past. Review of patient's record indicates that he had a stress test 2018 and was within normal limits. He had a cardiac cath in 2014 which was within normal limits. Work-up in the emergency room today, labs, chest x-ray and EKG has been unremarkable. Patient being admitted for chest pain work-up. Patient underwent stress test and was seen by cardiology, they read the stress test as negative for acute cardiac event and 15 mins counselling was provided to the patient to quit tobacco patient verbalized understanding. He has been noncompliant with his anticoagulation medication but does not know which 1 that he is on. He will follow-up at [place] he understands that he needs to call them today to get that information. He unfortunately although he denies cocaine use at this time he says he used it 2 weeks ago. (1) Chest pain likely secondary to costochondritis from tobacco use and cocaine use Status: Acute Plan to address problem: Patient with known history of coronary artery disease. We will trend cardiac enzymes. Patient placed on daily aspirin, sublingual nitroglycerin and IV morphine as needed for chest pain. Patient to be scheduled for We will request cardiology evaluation and recommendations (2) Smoking history Status: Acute Plan to address problem: Patient counseled on quitting tobacco abuse. (3) HTN (hypertension) Status: Chronic Plan to address problem: Will resume routine home medications and monitor vital signs closely. (4) cocaine use disorder Disposition: 01 HOME / SELF CARE / HOMELESS Final Discharge Diagnosis (Prints w/discharge instructions): (1) Chest pain likely secondary to costochondritis from tobacco use and cocaine. (2) Smoking history. (3) HTN (hypertension). (4) cocaine use disorder Time spent for discharge: 35 mins Core Measure Documentation - Palliative Care Palliative Care/ Comfort Measures: Not Applicable - Core Measures Any of the following diagnoses?: none Exam - Physical Exam Narrative exam: VITAL SIGNS: Reviewed. GENERAL: The patient appears normally developed, Vital signs as documented. HEAD: No signs of head trauma. EYES: Pupils are equal. Extraocular motions intact. EARS: Hearing grossly intact. MOUTH: Oropharynx is normal. NECK: No adenopathy, no JVD. CHEST: Chest with clear breath sounds bilaterally. No wheezes, rales, or rhonchi. CARDIAC: Regular rate and rhythm. S1 and S2, without murmurs, gallops, or rubs. VASCULAR: No Edema. Peripheral pulses normal and equal in all extremities. ABDOMEN: Soft, non tender and non distended. No rebound or guarding, and no masses palpated. Bowel Sounds normal. MUSCULOSKELETAL: Good range of motion of all major joints. Extremities without clubbing, cyanosis or edema. NEUROLOGIC EXAM: Alert and oriented x 3 No focal sensory or strength deficits. Speech normal. Follows commands. PSYCHIATRIC: Mood normal. SKIN: detail exam as documented in skin assessment - Constitutional Vitals: Temp Pulse Resp BP Pulse Ox 98.5 F 86 12 137/72 85 05/11/22 02:17 05/11/22 14:21 05/11/22 14:21 05/11/22 14:21 05/11/22 14:21 Plan Activity: advance as tolerated, fall precautions Diet: low fat Special Instructions: record daily weights, record daily BP diary, smoking cessation Follow up with: MARILU COELHO MD [Primary Care Provider] - 7 Days PATRICE BRIAN MD [Staff Physician] - 7 Days [facility] [Outside] - 7 Days Prescriptions: Nicotine [Habitrol] 21 mg TD QDAY #30 patch
[2022-05-11] MEDS ORDERED: NICOTINE 21 MG/24 HR PATCH TD SCH (15:00)
[2022-05-11 15:42] VITALS: BP 159/96
--- NOTE | 2022-05-11 17:55 | Electrocardiograph Report ---
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
--- NOTE | 2022-05-11 17:58 | Electrocardiograph Report ---
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
[2022-05-12] MEDS ORDERED: ASPIRIN EC 325 MG TAB PO SCH (10:00)
== END 2022-05-11 15:53 | disposition home or self-care (01) | DRG 313 ==
LOC: ED 02:14 → 4A 04:27 → IMCU 05:16
PROVIDERS: ADMIT Internal Medicine Geriatric Medicine; ATTEND Internal Medicine
DX: R07.89 Other chest pain (principal); I10 Essential (primary) hypertension; E78.00 Pure hypercholesterolemia, unspecified; F17.210 Nicotine dependence, cigarettes, uncomplicated; Z98.61 Coronary angioplasty status
CPT/HCPCS: 36415; 71045; 78452; 80048; 82550; 82553; 84484; 85025; 85610; 93005; 93017; 93306; G0378; A9502; C8929; J2270; J2405; J2785; J3010